=== PATIENT | female | born 1985 | race Caucasian/White ===

== ENCOUNTER 2017-12-01 17:46 | Emergency (ER) | payer BC ==
[2017-12-01 19:39] LABS: Absolute Lymphocytes (CBC) 3.6 K/uL (0.7-4.9); Absolute Monocytes 0.8 K/uL (0.1-1.3); Absolute Neutrophil 6.4 K/uL (1.8-8.0); Basophils % 0.7 % (0-1.3); Eosinophils % 1.2 % (0-4.4); Hematocrit 39.1 % (36.0-45.0); Lymphocytes % 32.7 % (15.3-44.8); MCH 31.8 pg (27.0-35.0); MCV 91.8 fL (80-100); MPV 9.1 fL (7.6-11.3); Monocytes % 7.4 % (3.3-12.3); RBC Red Blood Cell Count 4.26 M/uL (3.86-4.86)
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
[2017-12-01 19:58] LABS: BUN Blood Urea Nitrogen 4 mg/dL (7-18); Bicarbonate 25 mmol/L (21-32); Glucose Level 84 mg/dL (74-106); Potassium 3.4 mmol/L (3.5-5.1); Sodium Level 140 mmol/L (136-145)
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
[2017-12-01] MEDS ORDERED: POTASSIUM 25 MEQ EFFERV TAB ONE (21:38)
== END 2017-12-01 21:57 | disposition home or self-care (01) ==
LOC: ER 17:46
PROC: 3E0234Z Introduction of Serum, Toxoid and Vaccine into Muscle, Percutaneous Approach (ICD-10-PCS; principal; 2017-12-01)
DX: Z04.1 Encounter for examination and observation following transport accident (principal); Z34.92 Encounter for supervision of normal pregnancy, unspecified, second trimester; V57.0XXA Driver of pick-up truck or van injured in collision with fixed or stationary object in nontraffic accident, initial encounter; Y93.89 Activity, other specified; Y92.410 Unspecified street and highway as the place of occurrence of the external cause
CPT/HCPCS: 36415; 76815; 80048; 85025; 86850; 86900; 86901; 96372; 99284; J2790

== ENCOUNTER 2019-04-08 15:08 | Emergency (ER) | payer BC ==
--- OUTSIDE RECORDS SUMMARY | 2019-04-08 15:10 | XMS REPORT ---
:1985 Author Organization [employer] Care Team Providers Name Role Phone Sathya Meyer Provider Role Unavailable Allergies, Adverse Reactions, Alerts Substance Reaction Event Type Cephalexin Info Not Available Drug Allergy Problems Problem Type Condition Code Onset Dates Condition Status Problem Family history of heart disease Z82.49 Active Problem Bereavement Z63.4 Active Problem Hyperlipidemia E78.5 Active Assessment Cellulitis of left lower extremity L03.116 Active Assessment Skin ulcer, limited to breakdown of L98.491 Active skin Problem Hypercoagulable state D68.59 Active Problem Supervision of with other O09.299 Active poor reproductive or obstetric history, unspecified trimester Problem Body mass index (BMI) 36.0-36.9, Z68.36 Active adult Problem Skin ulcer, limited to breakdown of L98.491 Active skin Problem Gastroesophageal reflux disease K21.9 Active without esophagitis Problem Mild intermittent asthma with acute J45.21 Active exacerbation Problem Personal history of gestational Z86.32 Active diabetes Problem Environmental allergies Z91.09 Active Medications Medication Code Code Instructions Start End Status Dosage System Date Date Lovenox [facility] 99360498847 40 MG/0.4ML Active 0.4 ml Subcutaneous Once a day Tylenol ND 13034729312 325 MG Orally Active 1 tablet as every 4 hrs needed Aspirin 81 ND 91937791071 81 MG Orally Active 1 tablet Once a day Prenatabs OBN NDC 0 Active not defined ProAir HFA [facility] 24179742530 108 (90 Base) Feb 14, Active 2 puffs as MCG/ACT 2018 needed Inhalation every 6 hrs Lomotil ND 56958976668 2.5-0.025 MG Feb 28Mar 10, Active 1 tablet as Orally Four 2018 2018 needed times a day Ibuprofen ND 50737875653 800 MG Orally Active 1 tablet with Twice times a food or milk day as needed Santyl [facility] 42486740133 250 UNIT/GM Mar 04Mar 09, Active 1 application Externally Once 2019 2019 a day Synthroid ND 62331708930 50 MCG Orally Active 1 tablet on an Once a day empty stomach in the morning Bactrim DS [facility] 78041460597 800-160 MG Mar 04Mar 14, Active 1 tablet Orally Twice a 20182018 Results No Known Results Summary Purpose [employer] Submission
--- OUTSIDE RECORDS SUMMARY | 2019-04-08 15:10 | XMS REPORT ---
:1985 Author Organization [employer] Care Team Providers Name Role Phone Pema Beavers Provider Role Unavailable Allergies, Adverse Reactions, Alerts Substance Reaction Event Type Cephalexin Info Not Available Drug Allergy Bactrim DS Info Not Available Drug Allergy Problems Problem Type Condition Code Onset Dates Condition Status Problem Family history of heart disease Z82.49 Active Problem Bereavement Z63.4 Active Problem Hyperlipidemia E78.5 Active Assessment Allergic reaction to drug, initial T78.40XA Active encounter Assessment Rash R21 Active Problem Hypercoagulable state D68.59 Active Problem Supervision of with O09.299 Active other poor reproductive or obstetric history, unspecified trimester Problem Body mass index (BMI) 36.0-36.9, Z68.36 Active adult Problem Skin ulcer, limited to breakdown L98.491 Active of skin Problem Gastroesophageal reflux disease K21.9 Active without esophagitis Problem Mild intermittent asthma with J45.21 Active acute exacerbation Problem Personal history of gestational Z86.32 Active diabetes Problem Environmental allergies Z91.09 Active Medications Medication Code Code Instructions Start End Status Dosage System Date Date Ibuprofen ND 18661650673 800 MG Orally Active 1 tablet Twice times a with food day or milk as needed Tylenol ND 82281683560 325 MG Orally Active 1 tablet every 4 hrs as needed Lovenox ND 59406243377 40 MG/0.4ML Active 0.4 ml Subcutaneous Once a day Synthroid ND 88279398114 50 MCG Orally Active 1 tablet Once a day on an empty stomach in the morning Bactrim DS ND 71489479340 800-160 MG Mar 04, Mar 14, Active 1 tablet Orally Twice a 2018 2018 day ProAir HFA ND 64000517023 108 (90 Base) Feb 10, Active 2 puffs as MCG/ACT 2019 needed Inhalation every 6 hrs Aspirin 81 ND 39870515537 81 MG Orally Active 1 tablet Once a day Prenatabs OBN NDC 0 Active not defined Results No Known Results Summary Purpose [employer]ClinicalWorks Submission
[2019-04-08 15:41] LABS: Absolute Lymphocytes (CBC) 0.7 K/uL (0.7-4.9); Basophils % 0.3 % (0-1.3); Hematocrit 39.6 % (36.0-45.0); Lymphocytes % 6.5 % (15.3-44.8); MPV 8.8 fL (7.6-11.3); RBC Red Blood Cell Count 4.73 M/uL (3.86-4.86)
[2019-04-08] MEDS ORDERED: ONDANSETRON 4 MG/2 ML VIAL ONE (15:43)
[2019-04-08] MEDS ORDERED: NA CHLORIDE 0.9% 1,000 ML ONE ×2 (15:43→17:45)
[2019-04-08 15:57] LABS: Bilirubin Direct 0.2 mg/dL (0-0.2); Bilirubin Total 0.9 mg/dL (0.2-1.0); Potassium 3.9 mmol/L (3.5-5.1); Protein, Total 7.6 g/dL (6.4-8.2)
[2019-04-08 16:36] LABS: Blood Morphology Comment NOT SEEN (NOT SEEN); Platelet Estimate ADEQ; Urine White Blood Cell Casts OK
[2019-04-08 17:08] LABS: Urine Blood NEGATIVE (NEG); Urine Glucose NEGATIVE (NEG); Urine Protein 1+ (NEG); Urine Specific Gravity 1.015 (1.005-1.030); Urine pH 8.5 (5.0-7.0)
--- NOTE | 2019-04-08 17:08 | RAD REPORT ---
EXAM DESCRIPTION: CTAbdomen Pelvis W Contrast - 04/08/2019 4:57 pm CLINICAL HISTORY: Abdominal pain. left sided abd pain, vomiting, diarrhea;Abd pain COMPARISON: <Comparisons> TECHNIQUE: Biphasic CT imaging of the abdomen and pelvis was performed with 100 ml non-ionic IV cont rast. All CT scans are performed using dose optimization technique as appropriate and may include automated exposure control or mA/KV adjustment according to patient size. FINDINGS: The lung bases are clear. The liver, spleen, pancreas, adrenal glands and kidneys are within normal limits. No bowel obstruction, free air, free fluid or abscess. The appendix is normal. No evidence of signi ficant lymphadenopathy. Scoliosis hardware is present in the lower thoracic spine. IMPRESSION: No acute intra-abdominal or pelvic finding.
--- NOTE | 2019-04-08 18:18 | EDPHYS ---
Physician Documentation [facility] Name: Mary Gaytan Age: 33 yrs Sex: Female : 1985 Arrival Date: 04/08/2019 Time: 15:12 Bed 25 Private MD: ED Physician Luciano Frgaa HPI: 04/08 16:40 This 33 yrs old Female presents to ER via Wheelchair with complaints of rn Vomiting/Diarrhea. 16:40 The patient presents to the emergency department with nausea, vomiting, diarrhea, rn abdominal pain, of the left upper quadrant. Onset: The symptoms/episode began/occurred 2 day(s) ago. Possible causes: unknown. The symptoms are aggravated by nothing. The symptoms are alleviated by nothing. Associated signs and symptoms: Pertinent positives: abdominal pain, diarrhea, nausea, vomiting, Pertinent negatives: fever, GI bleeding. The patient has not experienced similar symptoms in the past. The patient has not recently seen a physician. Reports left sided abd pain, nausea/vomiting/diarrhea, began 1-2 days ago, no fever or blood in stool/emesis. . 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 - Social history:: Smoking status: Patient/guardian denies using tobacco. - Ebola Screening: : No symptoms or risks identified at this time. - Family history:: not pertinent. - Hospitalizations: : No recent hospitalization is reported. ROS: 16:40 Constitutional: Negative for fever, chills, and weight loss, Eyes: Negative for injury, rn pain, redness, and discharge, Cardiovascular: Negative for chest pain, palpitations, and edema, Respiratory: Negative for shortness of breath, cough, wheezing, and pleuritic chest pain, Abdomen/GI: + abd pain, nausea/vomiting/diarrhea MS/Extremity: Negative for injury and deformity, Skin: Negative for injury, rash, and discoloration, Neuro: Negative for headache, numbness, tingling, and seizure. Exam: 16:40 Constitutional: This is a well developed, well nourished patient who is awake, alert, rn appears fatigued Head/Face: Normocephalic, atraumatic. ENT: dry MM Neck: Trachea midline, no thyromegaly or masses palpated, and no cervical lymphadenopathy. Supple, full range of motion without nuchal rigidity, or vertebral point tenderness. No Meningismus. Cardiovascular: Regular rate and rhythm. No pulse deficits. Respiratory: No increased work of breathing, no retractions or nasal flaring. Abdomen/GI: soft, mild left sided tenderness, no rebound MS/ Extremity: Pulses equal, no cyanosis. Neurovascular intact. Full, normal range of motion. Equal circumference. Neuro: Awake and alert, GCS 15, oriented to person, place, time, and situation. Cranial nerves II-XII grossly intact. Motor strength 5/5 in all extremities. Sensory grossly intact. Vital Signs: 15:17 BP 109 / 67; Pulse 92; Resp 18 S; Temp 98.2(TE); Pulse Ox 100% on R/A; Weight 102.06 kg aa5 (R); Height 5 ft. 7 in. (170.18 cm) (R); Pain 3/10; 16:54 Pulse 82; Resp 18; Pulse Ox 100% on R/A; mg2 17:50 BP 112 / 77; Pulse 90; Resp 18; Pulse Ox 100% on R/A; mg2 18:47 BP 115 / 78; Pulse 92; Resp 18; Temp 98; Pulse Ox 100% on R/A; Pain 0/10; mg2 15:17 Body Mass Index 35.24 (102.06 kg, 170.18 cm) aa5 MDM: 15:30 Patient medically screened. rn 17:41 Differential diagnosis: Nonspecific abd pain, appendicitis, diverticulitis, viral rn gastroenteritis, gastroenteritis. Data reviewed: vital signs, nurses notes, lab test result(s), radiologic studies, CT scan, and as a result, I will discharge patient. Counseling: I had a detailed discussion with the patient and/or guardian regarding: the historical points, exam findings, and any diagnostic results supporting the discharge/admit diagnosis, lab results, radiology results, the need for outpatient follow up, to return to the emergency department if symptoms worsen or persist or if there are any questions or concerns that arise at home. Response to treatment: the patient's symptoms have markedly improved after treatment, and as a result, I will discharge patient. 17:50 ED course: Pt improved, will give another bolus of NS, stool culture obtained and sent. rn Non-bloody stool. Patient reports 2 other family members with GI symptoms as well, most likely enteritis, CT abdomen without acute findings, will dc home assuming viral enteritis with dehydration, prn zofran, and return precautions. Will send stool culture given recent shigella cases in our area. All of this explained to patient and feels better and good with plan. . 04/08 15:26 Order name: Basic Metabolic Panel; Complete Time: 16:36 mg2 04/08 15:26 Order name: CBC with Diff; Complete Time: 16:39 mg2 04/08 15:26 Order name: Creatinine for Radiology; Complete Time: 16:36 mg2 04/08 15:26 Order name: Hepatic Function; Complete Time: 16:36 mg2 04/08 15:26 Order name: Lipase; Complete Time: 16:36 mg2 04/08 15:46 Order name: CBC Smear Scan; Complete Time: 16:39 EDMS 04/08 15:36 Order name: CT Abd/Pelvis - IV Contrast Only; Complete Time: 17:29 04/08 16:26 Order name: Urine Dipstick--Ancillary (enter results); Complete Time: 17:17 bd 04/08 16:26 Order name: Urine --Ancillary (enter results); Complete Time: 17:17 bd 04/08 17:39 Order name: Rotavirus Antigen 04/08 17:39 Order name: Stool Culture 04/08 15:26 Order name: IV Saline Lock; Complete Time: 15:34 mg2 04/08 15:26 Order name: Labs collected and sent; Complete Time: 15:34 mg2 Administered Medications: 15:45 Drug: Zofran 4 mg Route: IVP; Site: left antecubital; mg2 17:50 Follow up: Response: No adverse reaction; Marked relief of symptoms mg2 15:46 Drug: NS 0.9% 1000 ml Route: IV; Rate: 1000 ml; Site: left antecubital; mg2 17:50 Follow up: Response: No adverse reaction; IV Status: Completed infusion; IV Intake: mg2 1000ml 17:35 Drug: NS 0.9% 1000 ml Route: IV; Rate: 1000 ml; Site: right forearm; mg2 18:47 Follow up: Response: No adverse reaction; IV Status: Completed infusion; IV Intake: mg2 1000ml Disposition: 04/08/19 17:52 Discharged to Home. Impression: Diarrhea, unspecified, Infectious gastroenteritis and colitis, unspecified, Dehydration. - Condition is Stable. - Discharge Instructions: Dehydration, Adult, Diarrhea, Adult. - Prescriptions for Zofran ODT 4 mg Oral tablet,disintegrating - place 1 tablet by TRANSLINGUAL route every 8 hours As needed; 20 tablet. - Medication Reconciliation Form, Thank You Letter, Antibiotic Education, Prescription Opioid Use, Work release form form. - Follow up: Private Physician; When: As needed; Reason: Recheck today's complaints, Re-evaluation by your physician. - Problem is new. - Symptoms have improved. Signatures: Dispatcher [employer] EDWA Luciano Fraga MD MD rn Calderon, Audri RN RN aa5 Elvis Arias RN RN mg2 Corrections: (The following items were deleted from the chart) 18:27 18:13 Rotavirus Antigen ordered. [facility] 18:48 17:52 04/08/2019 17:52 Discharged to Home. Impression: Diarrhea, unspecified; mg2 Infectious gastroenteritis and colitis, unspecified; Dehydration. Condition is Stable. Forms are Medication Reconciliation Form, Thank You Letter, Antibiotic Education, Prescription Opioid Use. Follow up: Private Physician; When: As needed; Reason: Recheck today's complaints, Re-evaluation by your physician. Problem is new. Symptoms have improved. rn
--- NOTE | 2019-04-08 18:18 | ER ---
Nurse's Notes [facility] Name: Mary Gaytan Age: 33 yrs Sex: Female : 1985 Arrival Date: 04/08/2019 Time: 15:12 Bed 25 Private MD: Diagnosis: Diarrhea, unspecified;Infectious gastroenteritis and colitis, unspecified;Dehydration Presentation: 04/08 15:16 Presenting complaint: Patient states: LUQ pain, headache, nausea/vomiting/diarrhea that aa5 began 2 days ago. Transition of care: patient was not received from another setting of care. Onset of symptoms was 2018. Risk Assessment: Do you want to hurt yourself or someone else? Patient reports no desire to harm self or others. Initial Sepsis Screen: Does the patient meet any 2 criteria? No. Patient's initial sepsis screen is negative. Does the patient have a suspected source of infection? No. Patient's initial sepsis screen is negative. Care prior to arrival: None. 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 - Social history:: Smoking status: Patient/guardian denies using tobacco. - Ebola Screening: : No symptoms or risks identified at this time. - Family history:: not pertinent. - Hospitalizations: : No recent hospitalization is reported. Screenin:33 Abuse screen: Denies threats or abuse. Denies injuries from another. Nutritional mg2 screening: No deficits noted. Tuberculosis screening: No symptoms or risk factors identified. Fall Risk IV access (20 points). Assessment: 15:32 General: Appears in no apparent distress. comfortable, Behavior is calm, cooperative. mg2 Pain: Complains of pain in abdomen. Neuro: Level of Consciousness is awake, alert, obeys commands, Oriented to person, place, time, situation. Cardiovascular: Capillary refill < 3 seconds Patient's skin is warm and dry. Respiratory: Airway is patent Respiratory effort is even, unlabored, Respiratory pattern is regular, symmetrical. GI: Abdomen is non-distended, Reports diarrhea, vomiting. : No signs and/or symptoms were reported regarding the genitourinary system. EENT: No signs and/or symptoms were reported regarding the EENT system. Derm: Skin is intact, is healthy with good turgor, Skin is pink, warm \T\ dry. normal. Musculoskeletal: Circulation, motion, and sensation intact. Capillary refill < 3 seconds. 17:52 Reassessment: Patient appears in no apparent distress at this time. Patient and/or mg2 family updated on plan of care and expected duration. Pain level reassessed. Patient is alert, oriented x 3, equal unlabored respirations, skin warm/dry/pink. 17:53 Reassessment: patient for dc after completing the iv fluid. mg2 Vital Signs: 15:17 BP 109 / 67; Pulse 92; Resp 18 S; Temp 98.2(TE); Pulse Ox 100% on R/A; Weight 102.06 kg aa5 (R); Height 5 ft. 7 in. (170.18 cm) (R); Pain 3/10; 16:54 Pulse 82; Resp 18; Pulse Ox 100% on R/A; mg2 17:50 BP 112 / 77; Pulse 90; Resp 18; Pulse Ox 100% on R/A; mg2 18:47 BP 115 / 78; Pulse 92; Resp 18; Temp 98; Pulse Ox 100% on R/A; Pain 0/10; mg2 15:17 Body Mass Index 35.24 (102.06 kg, 170.18 cm) aa5 ED Course: 15:12 Patient arrived in ED. mr 15:16 Triage completed. aa5 15:16 Arm band placed on. aa5 15:26 Elvis Arias, RN is Primary Nurse. mg2 15:30 Luciano Fraga MD is Attending Physician. rn 15:33 No provider procedures requiring assistance completed. Inserted saline lock: 20 gauge mg2 in left antecubital area, using aseptic technique. Blood collected. by Sherman preforms laminator. 15:34 Patient has correct armband on for positive identification. mg2 15:34 Bed in low position. Call light in reach. Side rails up X 1. Side rails up X2. Warm jp3 blanket given. Pillow given. Verbal reassurance given. Pulse ox on. NIBP on. 15:34 Initial lab(s) drawn, by me, sent to lab. Patient maintains SpO2 saturation greater jp3 than 95% on room air. 15:38 Radiology exam delayed due to lab results not completed at this time. test vm2 not completed at this time. 16:06 Radiology exam delayed due to test not completed at this time. vm2 16:57 CT Abd/Pelvis - IV Contrast Only In Process Unspecified. EDMS 17:51 stool sent to the lab. mg2 17:53 Rotavirus Antigen Sent. jp3 17:53 Stool Culture Sent. jp3 18:48 IV discontinued, intact, bleeding controlled, No redness/swelling at site. Pressure mg2 dressing applied. Administered Medications: 15:45 Drug: Zofran 4 mg Route: IVP; Site: left antecubital; mg2 17:50 Follow up: Response: No adverse reaction; Marked relief of symptoms mg2 15:46 Drug: NS 0.9% 1000 ml Route: IV; Rate: 1000 ml; Site: left antecubital; mg2 17:50 Follow up: Response: No adverse reaction; IV Status: Completed infusion; IV Intake: mg2 1000ml 17:35 Drug: NS 0.9% 1000 ml Route: IV; Rate: 1000 ml; Site: right forearm; mg2 18:47 Follow up: Response: No adverse reaction; IV Status: Completed infusion; IV Intake: mg2 1000ml Intake: 17:50 IV: 1000ml; Total: 1000ml. mg2 18:47 IV: 1000ml; Total: 2000ml. mg2 Outcome: 17:52 Discharge ordered by . rn 18:48 Discharged to home ambulatory. mg2 18:48 Condition: stable 18:48 Discharge instructions given to patient, Instructed on discharge instructions, follow up and referral plans. medication usage, Demonstrated understanding of instructions, follow-up care, medications, Prescriptions given X 1. 18:48 Patient left the ED. mg2 Signatures: Dispatcher [employer] BERTINIL ConnorElizabeth Roman, MD MD rn Calderon, Audri RN RN [id number] Tia Soto 2 Elvis Arias RN RN mg2 Harpal Palm jp3
[2019-04-08 23:39] VITALS: O2SAT 100
[2019-04-08 23:44] VITALS: BP 115/78; TEMP 98
== END 2019-04-08 18:48 | disposition home or self-care (01) ==
LOC: ER 15:08
DX: A09 Infectious gastroenteritis and colitis, unspecified (principal); E86.0 Dehydration; E03.9 Hypothyroidism, unspecified; Z88.1 Allergy status to other antibiotic agents; Z88.3 Allergy status to other anti-infective agents
CPT/HCPCS: 96361; 87045; 85025; 80048; 36415; 81025; 80076; 87046; 81003; 83690; 74177; 96374; 99284; Q9967; J7030 ×2; J2405

== ENCOUNTER 2020-09-14 18:19 | Emergency (ER) | payer BC ==
--- OUTSIDE RECORDS SUMMARY | 2020-09-14 18:23 | XMS REPORT | Continuity of Care Document ---
:1985 Author Organization [facility] t Address [address] [place] [address] Care Team Providers Name Role Phone Kierra Briggs MD. Primary Care Physician Fermin Perdomo MD Attending Clinician Irina Briggs MD Attending Clinician Valdo Parekh Attending Clinician Emily CANELA Attending Clinician Maris HOPKINS Attending Clinician Unavailable Leslie CANELA, W. Attending Clinician Cortes Marcano Attending Clinician Orlando Lopez Attending Clinician Josh Bullard Attending Clinician Tommy Vargas Attending Clinician BON Admitting Clinician Unavailable Payers Payer Name Policy Type Policy Effective Date Expiration Date [facility] Number BCBSBCBS CHOICE [id number] 2016 [place] PPO/FEDERAL 00:00:00 Rastafarian EMPL [id number] 2016-Karoline tPPO Problems Condition Condition Condition Status Onset Resolution Last Treating Co mments Source Name Details Category Date Date Treatment Clinician Date Disease Active Robert ston at greater at greater 1-31 Me thodi than 3 than 3 00:00: st months months 00 gestation gestation Disease Active Robert ston 1-13 Methodi 00:00: st 00 Family Family Problem Active [facility] history of history of Herlinda kes - heart heart Memoria disease disease l [facility] Hypercoagu Hypercoagu Problem Active [facility] lable lable [facility] state state [facility] l [facility] Hyperlipid Hyperlipid Problem Active [facility] emia emia [facility] - [facility] Bereavemen Bereavemen Problem Active [facility] t t [facility] Body mass Body mass Problem Active [facility] index index [facility] - (BMI) (BMI) Memoria 36.0-36.9, 36.0-36.9, l adult adult [facility] Personal Personal Problem [facility] of history of Herlinda kes - gestationa gestationa Me moria l diabetes l diabetes l [facility]ics Supervisio Supervisio Problem Active [facility] n of n of [facility] - David palma with other with other l poor poor Outpati reproducti reproducti en t ve or ve or Clinics obstetric obstetric history, history, unspecifie unspecifie d d trimester trimester Mild Mild Problem Active [facility] intermitte intermitte Herlinda kes - nt asthma nt asthma David palma with acute with acute l exacerbati exacerbati Ou tpati on on ent Clinics Environmen Environmen Problem Active C [facility] reg reg [facility] - allergies allergies David palma l [facility] Gastroesop Gastroesop Problem Active C [facility] hageal hageal [facility] - reflux reflux Memoria disease disease l without without Outpati esophagiti esophagiti en t s s Clinics Skin Skin Problem Active [facility] ulcer, ulcer, [facility] - limited to limited to Me moria breakdown breakdown l of skin of skin [facility] Allergic Allergic Diagnosis Active [facility] reaction reaction [facility] - to drug, to drug, Memori a initial initial l encounter encounter Outp ati ent Clinics Rash Rash Diagnosis Active [facility] Allergies, Adverse Reactions, Alerts Allergy Allergy Status Severity Reaction(s) Onset Inactive Treating Comm ents Source Name Type Date Date Clinician Sulfamet Propensi Active Rash 2019-05 [place] hoxazole ty to 0-20 [facility] -Trimeth adverse 00:00: st oprim reaction 00 s to drug Cephalos Propensi Active Hives [place] porins ty to 9-23 Methodi adverse 00:00: st reaction 00 s to drug Loracarb Propensi Active Hives [place] ef ty to 12-22 Methodi adverse 00:00: st reaction 00 s to drug Cephalex Adverse Active Info Not [facility] in Reaction Available [facility] Bactrim Adverse Active Info Not [facility] DS Reaction Available [facility] Family History Family Member Diagnosis Comments Start Date Stop Date Source Natural father Heart attack [place] Rastafarian Natural father Heart disease [place] Rastafarian Natural father Hypertension [place] Rastafarian Natural father Ulcerative colitis Navdeep solis Rastafarian Natural mother Dementia [facility] thodist Natural mother Thyroid disease [place] Rastafarian Paternal aunt Heart disease [place] Rastafarian Natural sister Hypertension [place] Rastafarian Social History Social Habit Start Date Stop Date Quantity Comments Source Tobacco use and 2020-06-08 2020-06-08 Never used [facility] ethodist exposure 00:00:00 00:00:00 Alcohol intake 2020-06-08 2020-06-08 Lifetime [facility] thodist 00:00:00 00:00:00 non-drinker (finding) Alcohol Comment 2018-01-28 2018-01-28 Occsional but not Ho irma Rastafarian 00:00:00 00:00:00 in Sex Ass[birth year] [facility] ethodist 00:00:00 00:00:00 Smoking Status Start Date Stop Date Source Never smoker [place] [facility] t Medications Ordered Filled Start Stop Current Ordering Indication Dosage Frequency Signature Comments Components Source Medication Medication Date Date Medication? Clinician (SIG) Name Name enoxaparin 2020- No 40mg QD Inject 40 [place] (Lovenox) 06-10-03 mg under Metho di 40 mg/0.4 13:42: 00:[address] mL syringe 31 :00 daily. labetaloL 2020- No 100mg Q.5D Take 100 Ho irma (NORMODYNE) 06-10-03 mg by Method i 100 MG 13:42: 00:[address] tablet 31 :00 (two) times a day. aspirin 2020- No 81mg QD Take 81 mg Robert verena (ECOTRIN) 06-10-03 by mouth Metho di 81 MG 13:42: 00:[address] enteric 31 :00 coated tablet Yes 1{tbl} QD Take 1 [place] vit,calc76- 2-03 tablet by Met santos iron-folic 13:42: mouth st 29 mg iron- 29 daily. 1 mg tablet per tablet cholecalcif Yes 1000U QD Take 1,000 [place] ector, 2-03 Units by Methodi vitamin D3, 13:42: mouth st (VITAMIN 29 daily. D3) 1,000 unit tablet levothyroxi Yes 50ug QD Take 50 Robert ston ne 2-03 mcg by Methodi (SYNTHROID, 13:42: mouth st LEVOXYL) 50 29 every mcg tablet morning. ibuprofen No 600mg Q6H Take 1 [place] (ADVIL) 600 2-02 03-04 tablet Metho di MG tablet 00:00: 23:59 ([address] 00 :00 total) by mouth every 6 (six) hours as needed for moderate pain for up to 30 days. Bactrim DS Bactrim DS 2018-05 2019 No Pema [address] [address] 0-28 11-07 [place] [facility] - 00:00: 00:00 [facility]oria 00 :00 [facility] ProAir HFA ProAir HFA 2018-05 Yes Pema [address] [facility] 0-10 [place] needed [facility] - 00:00: Memoria 00 [facility] sertraline Yes [place] (ZOLOFT) 3 Methodi 100 MG 00:00: st tablet 00 levomefolat Yes [place] calcium 9 Methodi (L-METHYLFO 00:00: st LATE ORAL) 00 Lovenox Lovenox Yes [facility]ema 0.4 ml [facility] [place] [facility] Clinics Synthroid Synthroid Yes Pema [address] [facility] [address] [place] on an [facility] - empty Memoria stomach in l the Outpati morning ent Clinics Aspirin 81 Aspirin 81 Yes Pema [address] [facility] [place] [facility] Prenatabs Prenatabs Yes Pema not [facility] OBN OBN [place] defined [facility] l [facility] ent Clinics Ibuprofen Ibuprofen Yes Pema [address] [place] with food [facility] - or milk as Memoria needed l [facility] ent Clinics Tylenol Tylenol Yes Pema [address] [place] as needed [facility] - Memoria l [facility] ent Clinics Immunizations Ordered Immunization Filled Immunization Date Status Commen ts Source Name Name PFIZER COVID-19 MRNA 2020-08-17 Completed [place] VACCINATION 00:00:00 Rastafarian PFIZER COVID-19 MRNA 2020-07-27 Completed [facility] ton VACCINATION 00:00:00 Rastafarian Rho (D) Immune 2020-06-09 Completed [place] Globulin 00:00:00 Rastafarian MMR 2020-06-08 Completed [place] 00:00:00 Rastafarian Vital Signs Vital Name Observation Time Observation Value Comments Source Systolic blood 2020-06-10 07:44:52 140 mm[Hg] Gael Clemons pressure Diastolic blood 2020-06-10 07:44:52 83 mm[Hg] Samuel Clemons pressure Heart rate 2020-06-10 07:44:52 71 /min Edgardo Clemons Body temperature 2020-06-10 07:44:52 36.78 Misty Carolyn Clemons Respiratory rate 2020-06-10 07:44:52 18 /min Carolyn Clemons Oxygen saturation in 2020-06-08 13:15:00 97 /min Edgardo Clemons Arterial blood by Pulse oximetry Body height 2020-06-07 20:51:00 170.2 cm Edgardo Clemons Body weight 2020-06-07 20:51:00 109.77 kg Edgardo Clemons BMI 2020-06-07 20:51:00 37.90 kg/m2 Edgardo Clemons Procedures Procedure Date / Time Performing Clinician Source Performed HEMOGLOBIN 2020-06-09 04:43:00 Layla Briggs HEMATOCRIT 2020-06-09 04:43:00 Layla Briggs Meth odchristiano SCREEN 2020-06-09 04:33:00 Layla Briggs RH IMM GLOBULIN 2020-06-09 04:33:00 Layla Briggs ANESTHESIA EPIDURAL BLOCK 2020-06-08 06:33:22 Robert Diaz HC COMPLETE BLD COUNT 2020-06-07 20:45:00 Layla Briggs W/AUTO DIFF HEPATITIS B SURFACE 2020-06-07 20:45:00 Layla Briggs ANTIGEN SYPHILIS TOTAL ANTIBODY 2020-06-07 20:45:00 Layla Briggs TYPE AND SCREEN, 2020-06-07 20:45:00 Layla Briggs Met hodist OBSTETRICAL PATIENT GLUCOSE LEVEL 2020-06-07 20:45:00 Layla Briggs odist COVID-19 QUALITATIVE PCR 2020-06-05 11:04:00 Layla Briggs HC COMPLETE BLD COUNT 2020-04-25 21:00:00 Krysten Buchanan W/AUTO DIFF [facility] PROTHROMBIN TIME WITH INR 2020-04-25 21:00:00 Krysten Buchanan [facility] PARTIAL THROMBOPLASTIN 2020-04-25 21:00:00 Krysten Buchanan on Rastafarian TIME (PTT) [facility] FIBRINOGEN 2020-04-25 21:00:00 Krysten Buchanan [facility] US LIMITED 2020-04-25 20:40:13 Krysten Buchanan [facility] URINE CULTURE 2020-04-25 19:42:00 Krysten Buchanan [facility] URINALYSIS SCREEN AND 2020-04-25 19:25:00 Krysten Buchanan MICROSCOPY, WITH REFLEX TO [facility] CULTURE Plan of Care Planned Activity Planned Date Details Comments Source Future Scheduled 2020-12-06 INFLUENZA VACCINE Gael Griffinist Test 00:00:00 [code = INFLUENZA VACCINE] Future Scheduled 2018-12-14 Screening for [place] [facility] Test 00:00:00 malignant neoplasm of cervix (procedure) [code = 455915154] Future Scheduled 2002 Hepatitis C [place] Met hodist Test 00:00:00 screening (procedure) [code = 458940631] Encounters Start End Encounter Admission Attending Care Care Encounter Source Date/Time Date/Time Type Type Clinicians Facility Department ID 2020-08-17 2020-08-17 Outpatient BETO [facility] [id number] [place] 00:00:00 00:00:00 BREE [address] 2020-07-27 2020-07-27 Outpatient [facility] [id number] [place] 00:00:00 00:00:[address] 2020-06-07 2020-06-10 Inpatient BERTLEIA, [facility] [id number] [place] 00:00:00 00:00:00 LAYLA [address] 2020-06-05 2020-06-05 Outpatient BERTLES, [facility] [id number] [place] 00:00:00 00:00:00 LAYLA [address] 2020-04-25 2020-04-26 Emergency BERTLES, [facility] [id number] [place] 00:00:00 00:00:00 LAYLA [address] 2020-02-25 2020-02-25 Outpatient MAFFET, [facility] [id number] [place] 00:00:00 00:00:00 AG [address] 2020-02-25 2020-02-25 Outpatient MAFFET, [facility] [id number] [place] 00:00:00 00:00:[address] AG [address] 2019-07-16 2019-07-16 [id number] 16:46:07 20:16:00 Dae[place] 2019-07-16 2019-07-16 Outpatient Yassine Marcano [facility] [id number] 16:46:07 20:16:00 Daeun 2019-07-16 2019-07-16 Emergency E [facility] [id number] 16:46:00 16:46:00 2019-03-12 2019-03-12 [facility] [id number] 16:40:00 16:40:00 t [facility] Medicine Outpati ent Clinics 2019-03-04 2019-03-04 [facility] [id number] 15:45:00 15:45:00 t [facility] Medicine Outpati ent Clinics 2019-02-28 2019-02-28 [facility] [id number] 08:15:00 08:15:00 t [facility] Medicine Outpati ent Clinics 2019-02-14 2019-02-14 [facility] [id number] 16:15:00 16:15:00 [facility] 2018-10-30 2018-10-30 [facility] [id number] 11:45:00 11:45:00 [facility] 2017-11-21 2017-11-21 Outpatient ONEIDA Lopez [id number] 08:10:00 09:44:00 Alexandra Perry 2017-11-21 2017-11-21 Outpatient ONEIDA Lopez [id number] [id number] 08:10:00 09:44:00 Alexandra Perry 2016-02-18 2016-02-18 Outpatient ONEIDA Bullard [id number] 20:02:00 23:37:00 Dequan Moreno 2016-02-18 2016-02-18 Outpatient ONEIDA Bullard9 [id number] 20:02:00 23:37:00 Dequan Marcelo Moreno 2015-09-14 2015-09-14 Outpatient Sam [facility] [id number] 08:08:00 23:59:00 Evan Sanders 2015-09-14 2015-09-14 Outpatient Sam [facility] [id number] 08:08:00 23:59:00 Evan Sanders 2013-04-29 2013-04-29 Outpatient 3 [id number] 09:05:19 09:05:18 2013-04-29 2013-04-29 Outpatient 3 3 [id number] 09:05:19 09:05:18 2012-12-15 2012-12-15 Outpatient 3 3 [id number] 11:19:39 11:19:18 2012-12-15 2012-12-15 Outpatient 3 [id number] 11:19:39 11:19:18 2012-12-06 2012-12-06 Outpatient 3 [id number] 05:03:08 05:03:07 2012-12-06 2012-12-06 Outpatient 3 [id number] 05:03:08 05:03:07 2012-12-03 2012-12-03 Outpatient 3 [id number] 16:03:10 16:03:10 2012-12-03 2012-12-03 Outpatient 3 3 [id number] 16:03:10 16:03:10 Results Test Description Test Time Test Comments Results Result Comments Source Rh imm globulin 2020-06-09 06:15:00 Test Item Value Reference Range Interpretation Comme nts Rh Imm Globulin (test code = 2631) RHIG [id number] Issued [facility] [id number] 06:33:22Robert Diaz MD 06/08/2020 6:33 AMEpidural Block Patient Location: OBReason for Block: labor e pidural Performed by: anesthesiologistAnesthesiologist: Robert Diaz MDAuthorized by: Robert Diaz MD Preprocedure: patient identified, IV checked, site and side verified, risks and benefitsdiscussed, procedure verified, surgical consent completed, patient position confirmed, monitors and e quipment checked, pre-op evaluation completed and coagulation status reviewed Patient Position: SittingPrep: Betadine Monitoring: Blood pressure monitoring, continuous pulse oximetry and heart rateApproach: MidlineInterspace: L3-4Injection Technique: RAVINDER salineNeedle Type: TuohyNeedle Gauge: 17Loss of resistance: 5 cmCatheter at Skin Depth: 11 cmTest Dose: Negative and lidocaine 1.5% withepinephrine 1-to-200,000Number of Attempts: 1Pump program started: pain pump Block Outcome: No apparent complications, patient comfortable and patient tolerated procedure wellPost- procedure: Patient returned to supine position with left lateral displacement and sterile dressing appliedPump programchanged: pain pumpHouston MethodistUrine [id number] 04:53:48 Test Item Value Reference Range Interpretation Comments Urine culture Mixed ed Specimen isolate (test <=10-3 col/cc InformationSp ecimen code = [id number]) Source: Urin eSpecimen Site: Clean cat kunal [facility] MethodistUS [id number] 20:57:08Hm Interface, Radiology Results Incoming - 04/25/2020 9:00 PM CSTFormatting of this note might be di fferent from the original.EXAMINATION: US LIMITEDCLINICAL HISTORY: 35 years Female Vaginal bleeding (), 33.1 weeks vag bleedingTECHNIQUE: Grayscale and color Doppler analysis of the pelvis was performed via transabdominal approach.COMPARISON: None.IMPRESSION:Limited evaluation dem onstrates a single intrauterine .Estimated gestational age is 36 weeks 0 days which corresponds to an MARLENY of May 23, 2020 cardiac activity is identified with a rate of 149 bpm.The placenta is fundal and there is no evidence of placenta previa.The fetus is in Cephalic position.Amniotic fluid volume is within normal limits given the gestational age. JUSTIN is 11.3, the largest pocket measures 4.0 cmCervical length is 3.2 cm.Estimated weight is 2744g. Estimated weight percentage is 43%Edgardo Clemons
--- NOTE | 2020-09-14 20:32 | RAD REPORT ---
EXAM DESCRIPTION: RAD - Shoulder Left 2 View - 09/14/2020 8:21 pm CLINICAL HISTORY: PAIN COMPARISON: No comparisons FINDINGS: No fracture or dislocation is seen.
--- NOTE | 2020-09-14 20:34 | RAD REPORT ---
EXAM DESCRIPTION: RAD - Elbow Left 2 View - 09/14/2020 8:22 pm CLINICAL HISTORY: PAIN COMPARISON: No comparisons FINDINGS: The examination is limited nonstandard anatomic positioning. Mild elevation the anterior a nd fat pad is suspected. This could indicate subtle radial head fracture that is not visible due to l imitations the presented images. Advise correlation with clinical point tenderness in the region.
--- NOTE | 2020-09-14 20:34 | RAD REPORT ---
EXAM DESCRIPTION: RAD - Wrist Left 3 View - 09/14/2020 8:24 pm CLINICAL HISTORY: PAIN Pain COMPARISON: No comparisons FINDINGS: No acute fracture or dislocation seen.
--- NOTE | 2020-09-14 21:02 | ER ---
Nurse's Notes [facility] Name: Mary Johnson Age: 35 yrs Sex: Female : 1985 Arrival Date: 09/14/2020 Time: 18:20 Bed 23 Private MD: Diagnosis: Radial Head Fracture Presentation: 09/14 18:25 Chief complaint: Patient states: "I tripped over a baby gait by accendent and landed on jd3 my left arm. shoulder down hurts pretty bad.". Coronavirus screen: At this time, the client does not indicate any symptoms associated with coronavirus-19. Ebola Screen: Patient negative for fever greater than or equal to 101.5 degrees Fahrenheit, and additional compatible Ebola Virus Disease symptoms. Initial Sepsis Screen: Does the patient meet any 2 criteria? No. Patient's initial sepsis screen is negative. Does the patient have a suspected source of infection? No. Patient's initial sepsis screen is negative. Risk Assessment: Do you want to hurt yourself or someone else? Patient reports no desire to harm self or others. Onset of symptoms was September 14, 2020. 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 - Social history:: Smoking status: Patient denies any tobacco usage or history of. Screenin:28 Abuse screen: Denies threats or abuse. Denies injuries from another. Nutritional iw screening: No deficits noted. Tuberculosis screening: No symptoms or risk factors identified. Fall Risk None identified. Assessment: 20:27 General: Appears in no apparent distress. Behavior is calm, cooperative. Pain: iw Complains of pain in left arm. Neuro: Level of Consciousness is awake, alert, obeys commands, Oriented to person, place, time, situation. Derm: Skin is intact, is healthy with good turgor. Musculoskeletal: Range of motion: limited in left elbow. Vital Signs: 18:30 BP 129 / 95; Pulse 88; Resp 17 S; Temp 97.5(TE); Pulse Ox 99% on R/A; Weight 106.59 kg jd3 (R); Height 5 ft. 7 in. (170.18 cm) (R); Pain 8/10; 18:30 Body Mass Index 36.81 (106.59 kg, 170.18 cm) jd3 ED Course: 18:20 Patient arrived in ED. as 18:26 Triage completed. jd3 18:30 Arm band placed on. jd3 20:20 Dante Luque PA is PHCP. m 20:20 Romario Kearns MD is Attending Physician. jmm 20:22 XRAY Shoulder LEFT 2 view In Process Unspecified. EDMS 20:22 XRAY Wrist LEFT 3 view In Process Unspecified. EDMS 20:22 Elbow Left 2 View In Process Unspecified. EDMS 20:27 Crys Li, RN is Primary Nurse. iw 21:01 Herberth Francisco MD is Referral Physician. [facility] Administered Medications: 21:30 Not Given (Patient Refused): Ibuprofen 800 mg PO once iw Outcome: 21:01 Discharge ordered by . m 21:58 Patient left the ED. iw Signatures: Dispatcher [employer] EDMS Dante Luque PA PA jmm Martinez, Amelia as Crys Li, RN RN iw Germain Kelley RN RN j
--- NOTE | 2020-09-14 21:02 | EDPHYS ---
Physician Documentation [facility] Name: Mary Johnson Age: 35 yrs Sex: Female : 1985 Arrival Date: 09/14/2020 Time: 18:20 Bed 23 Private MD: ED Physician Romario Kearns HPI: 09/14 20:41 This 35 yrs old Female presents to ER via Ambulatory with complaints of Elbow jmm Injury, Arm Injury. 20:41 The patient or guardian complains of injury, pain. Onset: The symptoms/episode jmm began/occurred acutely, just prior to arrival. Modifying factors: The symptoms are alleviated by nothing. the symptoms are aggravated by movement. Associated signs and symptoms: Pertinent negatives: fever. Patient states falling on her left side after attempting to step over a babygate. . 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 - Social history:: Smoking status: Patient denies any tobacco usage or history of. ROS: 20:41 Constitutional: Negative for fever, chills, and weight loss, Cardiovascular: Negative jmm for chest pain, palpitations, and edema, Respiratory: Negative for shortness of breath, cough, wheezing, and pleuritic chest pain. 20:41 MS/extremity: Positive for injury or acute deformity. 20:41 All other systems are negative. Exam: 20:41 Constitutional: This is a well developed, well nourished patient who is awake, alert, jmm and in no acute distress. Head/Face: atraumatic. Eyes: EOMI, no conjunctival erythema appreciated ENT: Moist Mucus Membranes Neck: Trachea midline, Supple Chest/axilla: Normal chest wall appearance and motion. Cardiovascular: Regular rate and rhythm. No edema appreciated Respiratory: Normal respirations, no respiratory distress appreciated Abdomen/GI: Non distended, soft Back: Normal ROM 20:41 Musculoskeletal/extremity: Painful rom noted to the left elbow, full radial pulse, compartments are soft, NVI. 20:41 Skin: abrasions noted to the lower extremities. 20:41 Neuro: Orientation: is normal, Mentation: is normal, Memory: is normal. 20:41 Psych: Behavior/mood is pleasant, cooperative. Vital Signs: 18:30 BP 129 / 95; Pulse 88; Resp 17 S; Temp 97.5(TE); Pulse Ox 99% on R/A; Weight 106.59 kg jd3 (R); Height 5 ft. 7 in. (170.18 cm) (R); Pain 8/10; 18:30 Body Mass Index 36.81 (106.59 kg, 170.18 cm) jd3 MDM: 20:26 Patient medically screened. [facility] 21:01 Data reviewed: vital signs, nurses notes. Counseling: I had a detailed discussion with bernardo the patient and/or guardian regarding: the historical points, exam findings, and any diagnostic results supporting the discharge/admit diagnosis, radiology results, the need for outpatient follow up, to return to the emergency department if symptoms worsen or persist or if there are any questions or concerns that arise at home. 09/14 18:32 Order name: XRAY Shoulder LEFT 2 view; Complete Time: 20:37 jd3 09/14 18:32 Order name: XRAY Wrist LEFT 3 view; Complete Time: 20:37 jd3 09/14 20:21 Order name: Elbow Left 2 View; Complete Time: 20:37 EDRI 09/14 20:38 Order name: Splint - Elbow - Posterior; Complete Time: 21:24 [facility] Administered Medications: 21:30 Not Given (Patient Refused): Ibuprofen 800 mg PO once iw Disposition: 09/15 06:49 Co-signature as Attending Physician, Romario Kearns MD I agree with the assessment and [facility] plan of care. Disposition: 09/14/20 21:01 Discharged to Home. Impression: Radial Head Fracture. - Condition is Stable. - Discharge Instructions: Radial Head Fracture. - Prescriptions for Ibuprofen 800 mg Oral Tablet - take 1 tablet by ORAL route every 8 hours As needed take with food; 30 tablet. - Medication Reconciliation Form, Thank You Letter, Antibiotic Education, Prescription Opioid Use form. - Follow up: Herberth Francisco MD; When: 2 - 3 days; Reason: Recheck today's complaints, Continuance of care, Re-evaluation by your physician. Signatures: Dispatcher [employer] EDRI Romario Kearns MD MD cha Mickail, Joel, PA PA jmm Williams, Irene, RN RN Germain Desai RN RN jd3 Corrections: (The following items were deleted from the chart) 09/14 20:21 18:33 Elbow Left 3 View+[email or web address].[email or web address] ordered. [facility] 21:58 21:01 09/14/2020 21:01 Discharged to Home. Impression: Radial Head Fracture. Condition iw is Stable. Forms are Medication Reconciliation Form, Thank You Letter, Antibiotic Education, Prescription Opioid Use. Follow up: Dr. Herberth Francisco; When: 2 - 3 days; Reason: Recheck today's complaints, Continuance of care, Re-evaluation by your physician. bernardo
[2020-09-14] MEDS ORDERED: IBUPROFEN 400 MG TAB ONE (21:46)
[2020-09-14 23:11] VITALS: BP 129/95; TEMP 97.5; O2SAT 99
== END 2020-09-14 21:58 | disposition home or self-care (01) ==
LOC: ER 18:19
PROC: 2W39X1Z Immobilization of Left Upper Extremity using Splint (ICD-10-PCS; principal; 2020-09-14)
DX: S52.122A Displaced fracture of head of left radius, initial encounter for closed fracture (principal); W18.09XA Striking against other object with subsequent fall, initial encounter; Y93.89 Activity, other specified; Z88.1 Allergy status to other antibiotic agents; Z88.3 Allergy status to other anti-infective agents; Z88.5 Allergy status to narcotic agent
CPT/HCPCS: 99282

== ENCOUNTER 2022-04-29 07:57 | Day surgery (SDC) | payer BC ==
[2022-04-29] MEDS ORDERED: Ringers Lactate 1,000 ML IV ONE (08:14)
[2022-04-29] MEDS ORDERED: propofoL 200 MG/20 ML VIAL IV ONE ×2 (08:24→08:43)
[2022-04-29] MEDS ORDERED: FENTANYL CITR 100 MCG/2 ML ONE (08:24)
[2022-04-29] MEDS ORDERED: MIDAZOLAM HCL 2 MG/2 ML INJ ONE ×2 (08:25→08:43)
[2022-04-29] MEDS ORDERED: ONDANSETRON 4 MG/2 ML VIAL ONE ×3 (08:26→09:17)
[2022-04-29] MEDS ORDERED: LIDOCAINE 2% MPF 5 ML VIAL ONE ×2 (08:26→08:47)
[2022-04-29] MEDS ORDERED: KETOROLAC 30 MG/ML INJ ONE (08:43)
--- NOTE | 2022-04-29 09:44 | P.OP ---
Date of Service: 04/29/22 Preoperative diagnosis: Subacute nonsuppurative otitis media, left with right eustachian tube dysfunction Postoperative diagnosis: Same Procedure: bilateral myringotomy and tympanostomy tube placement Surgeon: Avril Slade MD Courtroom Deputy Or Calendar Clerk: None Anesthesia: General via inhalational mask Estimated blood loss: Nil Fluids/blood products: Crystalloid, 200 mL Specimen: None Implants: Tiny T tubes Findings: No middle ear fluid Indication: The patient had left acute otitis media in February 2022 treated with antibiotics. 1 month later she had persistent middle ear fluid with subjective hearing loss and felt her right ear was beginning to develop similar symptoms. We discussed conservative measures including observation and counseled the patient that middle ear fluid typically does resolve within 90 days. The patient was significantly bothered by the fluid, difficulty hearing and was very concerned about the risk of developing a similar, painful infection on the right ear. Her tympanogram in March demonstrated left type B with normal ear canal volume, confirming middle ear fluid. The right side was very shallow demonstrating minimal movement of the eardrum. The risks and benefits were discussed and the patient felt strongly about proceeding with placement of tympanostomy tubes. Details of operation: The patient was brought to the operating room and placed under general anesthesia via inhalational mask. The left ear was visualized under the operating microscope with assistance of an ear speculum. A myringotomy incision was made in the anterior-inferior quadrant and no fluid was aspirated from the middle ear space. A tiny T tube was positioned across the incision using an alligator forcep and pick. A similar procedure was performed on the right side. A myringotomy incision was made in the anterior-inferior quadrant and no fluid was aspirated from the middle ear space. A tiny T tube was positioned across the incision using an alligator forcep and pick. The procedure was concluded and the patient was awakened from anesthesia and transported to the recovery room in stable condition. Disposition the patient will be discharged home later today in the care of their family and follow-up with Dr. Slade's office in approximately 1 to 2 weeks.
[2022-04-29] MEDS ORDERED: IBUPROFEN 400 MG TAB ONE (10:08)
[2022-04-29 10:14] VITALS: BP 128/68; TEMP 97.6; O2SAT 99
== END 2022-04-29 10:26 | disposition home or self-care (01) ==
LOC: OR 07:57
PROVIDERS: ATTEND Otolaryngology
PROC: 099570Z Drainage of Right Middle Ear with Drainage Device, Via Natural or Artificial Opening (ICD-10-PCS; 2022-04-29)
PROC: 099670Z Drainage of Left Middle Ear with Drainage Device, Via Natural or Artificial Opening (ICD-10-PCS; principal; 2022-04-29 09:00)
DX: H65.192 Other acute nonsuppurative otitis media, left ear (principal); H65.33 Chronic mucoid otitis media, bilateral
CPT/HCPCS: 69436; J2704; J2001; J2250; J7120; J2405; J3010

== ENCOUNTER 2022-10-26 20:12 | Emergency (ER) | payer BC ==
--- OUTSIDE RECORDS SUMMARY | 2022-10-26 20:21 | XMS REPORT | Continuity of Care Document ---
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 2015-09-14 2015-09-15 [facility] [id number] Memoria 13:08:00 04:59:[address] 00 [facility] 2015-09-14 2015-09-15 [facility] [id number] Memoria 13:08:00 04:59:00 Surgery r [place] 00 [facility] 2015-09-14 2015-09-15 O[facility] [id number] Memoria 13:08:00 04:59:00 Surgery r [place] 00 [facility] 2015-09-14 2015-09-14 Outpatient Sam [facility] [id number] 08:08:00 23:59:00 Evan Sanders 2015-09-14 2015-09-14 [facility] [id number] 08:08:00 23:59:00 Evan Sanders Results Test Description Test Time Test Comments Results Result Comments Source SARS-CoV-2 (COVID-19) RNA [Presence] in Respiratory sp ecimen by 2020-06-05 21:40:13 RUBEN with probe detection Test Item Value Reference Range Interpretation Comme nts SARS-CoV-2 (COVID-19) RNA [Presence] in Respiratory Not detected No t-Detected specimen by RUBEN with probe detection (test code = 52947-9) [facility]2020-03-11 00:08:00 Test Item Value Reference Range Interpretation Comments WBC (test code = WBC) 8.7 3.7-10.4 [facility]hamIjggvetKILJJJLRMO7100-42-40 00:08:00 Test Item Value Reference Range Interpretation Comments RBC (test code = RBC) 4.88 4.20-5.40 [facility]hamXaiwjufECQETEXSDH7744-57-96 00:08:00 Test Item Value Reference Range Interpretation Comments Hgb (test code = Hgb) 13.9 12.0-16.0 [facility]hamRmefaitTFRNYSTMOD6018-04-14 00:08:00 Test Item Value Reference Range Interpretation Comments Hct (test code = Hct) 42.4 36.0-48.0 [facility] BrenhamIkthoryAEUKXHPERN5655-69-42 00:08:00 Test Item Value Reference Range Interpretation Comments MCV (test code = MCV) 86.9 80.0-98.0 [facility] BrenhamRcuazhrSLZVOIKKCU6032-52-82 00:08:00 Test Item Value Reference Range Interpretation Comments MCH (test code = MCH) 28.4 pg 27.0-31.0 [facility] BrenhamGyfbyriARBCBRBGPF6495-10-05 00:08:00 Test Item Value Reference Range Interpretation Comments MCHC (test code = MCHC) 32.7 32.0-36.0 [facility]hamOxpxbyaRHZGFPBDAJ3776-51-62 00:08:00 Test Item Value Reference Range Interpretation Comments RDW (test code = RDW) 18.1 11.5-14.5 [facility]hamCosexnzVBKMXEMAJC2499-60-06 00:08:00 Test Item Value Reference Range Interpretation Comments Platelet (test code = Platelet) 329 133-450 [facility] BrenhamNpxyormEDFXOXPBZH8063-53-89 00:08:00 Test Item Value Reference Range Interpretation Comments MPV (test code = MPV) 8.2 7.4-10.4 [facility] BrenhamTjddmkcOIZNJEPPHQ1554-18-77 00:08:00 Test Item Value Reference Range Interpretation Comments Segs (test code = Segs) 53.2 45.0-75.0 [facility] BrenhamUgwvlqnQYJLESHYPO7640-50-50 00:08:00 Test Item Value Reference Range Interpretation Comments Lymphocytes (test code = Lymphocytes) 36.0 20.0-40.0 [place] [address]-03-11 00:08:00 Test Item Value Reference Range Interpretation Comments Monocytes (test code = Monocytes) 8.3 2.0-12.0 [facility] BrenhamAabzhcpEKNTXQIWWO3793-05-50 00:08:00 Test Item Value Reference Range Interpretation Comments Eosinophils (test code = 1.8 See_Comment [A utomated message] The Eosinophils) system which ge nerated this result tra nsmitted reference range : <=4.0. The reference r yuval was not used to int erpret this result as normal/abnormal . [facility]hamUdrkirwPDVXODQIMK9061-11-47 00:08:00 Test Item Value Reference Range Interpretation Comments Basophils (test code = 0.7 See_Comment [Aut omated message] The Basophils) system which ge nerated this result tra nsmitted reference range : <=1.0. The reference r yuval was not used to int erpret this result as normal/abnormal . [facility] BrenhamIbrvgjkIFKLUNKARS5030-89-84 00:08:00 Test Item Value Reference Range Interpretation Comments Neutrophils # (test code = Neutrophils 4.6 1.5-8.1 #) [facility] BrenhamYtexsnwQONYUGBRER5694-91-16 00:08:00 Test Item Value Reference Range Interpretation Comments Lymphocytes # (test code = Lymphocytes 3.1 1.0-5.5 #) [facility] BrenhamCenqqamZGOAIICADJ3013-30-21 00:08:00 Test Item Value Reference Range Interpretation Comments Monocytes # (test code 0.7 See_Comment [Aut omated message] The = Monocytes #) system which generated this result tra nsmitted reference range : <=0.8. The reference r yuval was not used to int erpret this result as normal/abnormal . [place] 790590-03-11 00:08:00 Test Item Value Reference Range Interpretation Comments Eosinophils # (test code 0.2 See_Comment [A utomated message] The = Eosinophils #) system whic h generated this result tra nsmitted reference range : <=0.5. The reference r yuval was not used to int erpret this result as normal/abnormal . [place] 790590-03-11 00:08:00 Test Item Value Reference Range Interpretation Comments Basophils # (test code 0.1 See_Comment [Aut omated message] The = Basophils #) system which generated this result tra nsmitted reference range : <=0.2. The reference r yuval was not used to int erpret this result as normal/abnormal . [facility]hamTwfunkgWHCNRGXRNL0253-27-97 00:08:00 Test Item Value Reference Range Interpretation Comments WBC (test code = WBC) 8.7 3.7-10.4 [facility]hamCgzzddcDUZZVMUPMD7332-38-12 00:08:00 Test Item Value Reference Range Interpretation Comments RBC (test code = RBC) 4.88 4.20-5.40 [facility] BrenhamLaezgdoKBNIHZNTKE6316-29-06 00:08:00 Test Item Value Reference Range Interpretation Comments Hgb (test code = Hgb) 13.9 12.0-16.0 [facility] BrenhamNkmfueiBWIOSOPJVI0596-78-86 00:08:00 Test Item Value Reference Range Interpretation Comments Hct (test code = Hct) 42.4 36.0-48.0 [facility] BrenhamRiqfkxtSCXNUWEQRZ5080-12-82 00:08:00 Test Item Value Reference Range Interpretation Comments MCV (test code = MCV) 86.9 80.0-98.0 [facility] BrenhamUywdehsNDYALVNRZU2011-04-20 00:08:00 Test Item Value Reference Range Interpretation Comments MCH (test code = MCH) 28.4 pg 27.0-31.0 [facility] BrenhamUhagdemMOCSYSLQCW6265-12-48 00:08:00 Test Item Value Reference Range Interpretation Comments MCHC (test code = MCHC) 32.7 32.0-36.0 [facility] BrenhamYsloughXTOSPNERIR7391-66-98 00:08:00 Test Item Value Reference Range Interpretation Comments RDW (test code = RDW) 18.1 11.5-14.5 [facility]hamXfipukqTVXEGOLRGA2261-86-11 00:08:00 Test Item Value Reference Range Interpretation Comments Platelet (test code = Platelet) 329 133-450 [facility] BrenhamOrrunxkHNTZYROSKV9256-76-86 00:08:00 Test Item Value Reference Range Interpretation Comments MPV (test code = MPV) 8.2 7.4-10.4 [facility]hamNhxirvvSYSTUSCYVV3902-28-96 00:08:00 Test Item Value Reference Range Interpretation Comments Segs (test code = Segs) 53.2 45.0-75.0 [facility] BrenhamMeippgmDLKXWLEDRA8784-04-99 00:08:00 Test Item Value Reference Range Interpretation Comments Lymphocytes (test code = Lymphocytes) 36.0 20.0-40.0 [facility] BrenhamGuxylbfQNQCDNYFZU7265-78-85 00:08:00 Test Item Value Reference Range Interpretation Comments Monocytes (test code = Monocytes) 8.3 2.0-12.0 [facility] BrenhamZqtrqkyKKNMFRJLCS4936-56-59 00:08:00 Test Item Value Reference Range Interpretation Comments Eosinophils (test code = 1.8 See_Comment [A utomated message] The Eosinophils) system which ge nerated this result tra nsmitted reference range : <=4.0. The reference r yuval was not used to int erpret this result as normal/abnormal . [facility] BrenhamUnhbkwsCVBETHGHTV8996-14-33 00:08:00 Test Item Value Reference Range Interpretation Comments Basophils (test code = 0.7 See_Comment [Aut omated message] The Basophils) system which ge nerated this result tra nsmitted reference range : <=1.0. The reference r yuval was not used to int erpret this result as normal/abnormal . [facility] BrenhamCchkfkuQEFKWATLIE9579-40-59 00:08:00 Test Item Value Reference Range Interpretation Comments Neutrophils # (test code = Neutrophils 4.6 1.5-8.1 #) [facility] BrenhamGkihkalUWHHRAKAQF2838-87-69 00:08:00 Test Item Value Reference Range Interpretation Comments Lymphocytes # (test code = Lymphocytes 3.1 1.0-5.5 #) [facility] BrenhamLdnxlrfOFKJKMPJOS8651-72-23 00:08:00 Test Item Value Reference Range Interpretation Comments Monocytes # (test code 0.7 See_Comment [Aut omated message] The = Monocytes #) system which generated this result tra nsmitted reference range : <=0.8. The reference r yuval was not used to int erpret this result as normal/abnormal . [facility] BrenhamAllmbzvVYVYFDLTGM0684-71-80 00:08:00 Test Item Value Reference Range Interpretation Comments Eosinophils # (test code 0.2 See_Comment [A utomated message] The = Eosinophils #) system whic h generated this result tra nsmitted reference range : <=0.5. The reference r yuval was not used to int erpret this result as normal/abnormal . [facility] BrenhamBkozfahBTFBVMTIDX5946-77-83 00:08:00 Test Item Value Reference Range Interpretation Comments Basophils # (test code 0.1 See_Comment [Aut omated message] The = Basophils #) system which generated this result tra nsmitted reference range : <=0.2. The reference r yuval was not used to int erpret this result as normal/abnormal . [facility] BrenhamTgldeldPVSHEXNZDA8975-82-33 00:08:00 Test Item Value Reference Range Interpretation Comments WBC (test code = WBC) 8.7 3.7-10.4 [facility] BrenhamTawiqtuDTRKOPGSPJ3701-94-74 00:08:00 Test Item Value Reference Range Interpretation Comments RBC (test code = RBC) 4.88 4.20-5.40 [facility] BrenhamWutkgdnBDGBYPEUEN6816-59-98 00:08:00 Test Item Value Reference Range Interpretation Comments Hgb (test code = Hgb) 13.9 12.0-16.0 [facility] BrenhamWbjmflrHKHBABAMCR1234-42-87 00:08:00 Test Item Value Reference Range Interpretation Comments Hct (test code = Hct) 42.4 36.0-48.0 [facility] BrenhamFrogzxnSUIGITMAAM5037-97-97 00:08:00 Test Item Value Reference Range Interpretation Comments MCV (test code = MCV) 86.9 80.0-98.0 [facility] BrenhamDewnameDMBOVUOAMA6009-89-11 00:08:00 Test Item Value Reference Range Interpretation Comments MCH (test code = MCH) 28.4 pg 27.0-31.0 [facility] BrenhamArdemwbIPENMCFCHH5959-39-66 00:08:00 Test Item Value Reference Range Interpretation Comments MCHC (test code = MCHC) 32.7 32.0-36.0 [facility] BrenhamQyacxuyZZNYCNLERS2496-25-81 00:08:00 Test Item Value Reference Range Interpretation Comments RDW (test code = RDW) 18.1 11.5-14.5 [facility] BrenhamAeznaebGRYGEHFCEG5164-42-22 00:08:00 Test Item Value Reference Range Interpretation Comments Platelet (test code = Platelet) 329 133-450 [facility] BrenhamGxynfdsCFJOAKLPCG7111-71-01 00:08:00 Test Item Value Reference Range Interpretation Comments MPV (test code = MPV) 8.2 7.4-10.4 [facility] BrenhamVdehjrkFUPLNKFAJA8939-11-42 00:08:00 Test Item Value Reference Range Interpretation Comments Segs (test code = Segs) 53.2 45.0-75.0 [facility] BrenhamSybzmrfJOUEZQZDKP7978-77-64 00:08:00 Test Item Value Reference Range Interpretation Comments Lymphocytes (test code = Lymphocytes) 36.0 20.0-40.0 [facility] BrenhamSpddzzjVGDYSZOYFG8340-35-90 00:08:00 Test Item Value Reference Range Interpretation Comments Monocytes (test code = Monocytes) 8.3 2.0-12.0 [facility] BrenhamSeenuvtGTFTBPXGCI5590-14-96 00:08:00 Test Item Value Reference Range Interpretation Comments Eosinophils (test code = 1.8 See_Comment [A utomated message] The Eosinophils) system which ge nerated this result tra nsmitted reference range : <=4.0. The reference r yuval was not used to int erpret this result as normal/abnormal . [facility] BrenhamRoilrvnPGBMMSWOIP9278-60-27 00:08:00 Test Item Value Reference Range Interpretation Comments Basophils (test code = 0.7 See_Comment [Aut omated message] The Basophils) system which ge nerated this result tra nsmitted reference range : <=1.0. The reference r yuval was not used to int erpret this result as normal/abnormal . [facility] BrenhamVdjkcdmEOJWIASQEV2523-61-10 00:08:00 Test Item Value Reference Range Interpretation Comments Neutrophils # (test code = Neutrophils 4.6 1.5-8.1 #) [facility] BrenhamLnhcldsNFCJUDATSA1645-43-97 00:08:00 Test Item Value Reference Range Interpretation Comments Lymphocytes # (test code = Lymphocytes 3.1 1.0-5.5 #) [facility] BrenhamJqhtpfiSYSTDGVTAH5560-52-23 00:08:00 Test Item Value Reference Range Interpretation Comments Monocytes # (test code 0.7 See_Comment [Aut omated message] The = Monocytes #) system which generated this result tra nsmitted reference range : <=0.8. The reference r uyval was not used to int erpret this result as normal/abnormal . [facility] BrenhamZmvqixhTSXGNRWSPO0610-57-02 00:08:00 Test Item Value Reference Range Interpretation Comments Eosinophils # (test code 0.2 See_Comment [A utomated message] The = Eosinophils #) system whic h generated this result tra nsmitted reference range : <=0.5. The reference r yuval was not used to int erpret this result as normal/abnormal . [facility] BrenhamEdwulgmUMNEKJSJLC2574-57-72 00:08:00 Test Item Value Reference Range Interpretation Comments Basophils # (test code 0.1 See_Comment [Aut omated message] The = Basophils #) system which generated this result tra nsmitted reference range : <=0.2. The reference r yuval was not used to int erpret this result as normal/abnormal . [facility] BrenhamMqyvmviDQCDAQJZSJ8353-62-21 00:08:00 Test Item Value Reference Range Interpretation Comments WBC (test code = WBC) 8.7 3.7-10.4 [facility] BrenhamUxymcueFWXOLXLCWV4565-22-53 00:08:00 Test Item Value Reference Range Interpretation Comments RBC (test code = RBC) 4.88 4.20-5.40 [facility] BrenhamMzsgyfjFTWTRRMUIH4837-57-88 00:08:00 Test Item Value Reference Range Interpretation Comments Hgb (test code = Hgb) 13.9 12.0-16.0 [facility] BrenhamBjpczdoQUAEFBIKLV2615-00-31 00:08:00 Test Item Value Reference Range Interpretation Comments Hct (test code = Hct) 42.4 36.0-48.0 [facility] BrenhamMjixlmlQVAOFUBYEU8230-63-89 00:08:00 Test Item Value Reference Range Interpretation Comments MCV (test code = MCV) 86.9 80.0-98.0 [facility] BrenhamGkknhlkSNBOGAGVMW7620-50-50 00:08:00 Test Item Value Reference Range Interpretation Comments MCH (test code = MCH) 28.4 pg 27.0-31.0 [facility] BrenhamOwdzxzhXQPKBYYQEW7873-46-00 00:08:00 Test Item Value Reference Range Interpretation Comments MCHC (test code = MCHC) 32.7 32.0-36.0 [facility] BrenhamJqkbejoIZOQZCULCC5345-89-84 00:08:00 Test Item Value Reference Range Interpretation Comments RDW (test code = RDW) 18.1 11.5-14.5 [facility] BrenhamVmgmvspRBMNKAWNTQ9325-91-04 00:08:00 Test Item Value Reference Range Interpretation Comments Platelet (test code = Platelet) 329 133-450 [facility] BrenhamZxunlvbBZESOUFLNQ8135-95-13 00:08:00 Test Item Value Reference Range Interpretation Comments MPV (test code = MPV) 8.2 7.4-10.4 [facility] BrenhamWltbnbwHKCHBVZYFV9259-34-09 00:08:00 Test Item Value Reference Range Interpretation Comments Segs (test code = Segs) 53.2 45.0-75.0 [facility] BrenhamXrlkgivDOITRGTEHA3062-15-50 00:08:00 Test Item Value Reference Range Interpretation Comments Lymphocytes (test code = Lymphocytes) 36.0 20.0-40.0 [facility] BrenhamZcdtzqcLCGJQPQKNA8585-23-06 00:08:00 Test Item Value Reference Range Interpretation Comments Monocytes (test code = Monocytes) 8.3 2.0-12.0 [facility] BrenhamRwkhtgfZABECUDCEX7173-41-46 00:08:00 Test Item Value Reference Range Interpretation Comments Eosinophils (test code = 1.8 See_Comment [A utomated message] The Eosinophils) system which ge nerated this result tra nsmitted reference range : <=4.0. The reference r yuval was not used to int erpret this result as normal/abnormal . [facility] BrenhamVoiedjmDSQRGIIYRD8498-89-14 00:08:00 Test Item Value Reference Range Interpretation Comments Basophils (test code = 0.7 See_Comment [Aut omated message] The Basophils) system which ge nerated this result tra nsmitted reference range : <=1.0. The reference r yuval was not used to int erpret this result as normal/abnormal . [facility] BrenhamXvqknsmEJOVHVMLFB1951-87-48 00:08:00 Test Item Value Reference Range Interpretation Comments Neutrophils # (test code = Neutrophils 4.6 1.5-8.1 #) [facility] BrenhamPrkoldcRSWMGMFFQA0837-72-74 00:08:00 Test Item Value Reference Range Interpretation Comments Lymphocytes # (test code = Lymphocytes 3.1 1.0-5.5 #) [facility] BrenhamHutycmgJKWDNXPQNK7918-19-65 00:08:00 Test Item Value Reference Range Interpretation Comments Monocytes # (test code 0.7 See_Comment [Aut omated message] The = Monocytes #) system which generated this result tra nsmitted reference range : <=0.8. The reference r yuval was not used to int erpret this result as normal/abnormal . [facility] BrenhamPbttaizPKSGZNNHCK8229-58-25 00:08:00 Test Item Value Reference Range Interpretation Comments Eosinophils # (test code 0.2 See_Comment [A utomated message] The = Eosinophils #) system ic h generated this result tra nsmitted reference range : <=0.5. The reference r yuval was not used to int erpret this result as normal/abnormal . [facility] BrenhamKzwznzbNRMTBYGVLJ7757-05-26 00:08:00 Test Item Value Reference Range Interpretation Comments Basophils # (test code 0.1 See_Comment [Aut omated message] The = Basophils #) system which generated this result tra nsmitted reference range : <=0.2. The reference r yuval was not used to int erpret this result as normal/abnormal . [facility] BrenhamDzigkrjQIJECUNIFM4517-78-81 00:08:00 Test Item Value Reference Range Interpretation Comments WBC (test code = WBC) 8.7 3.7-10.4 [facility] BrenhamUspeiolZDBLFRFHRU6721-63-38 00:08:00 Test Item Value Reference Range Interpretation Comments RBC (test code = RBC) 4.88 4.20-5.40 [facility] BrenhamNkvtkzfOEEVSMXHNE7908-79-84 00:08:00 Test Item Value Reference Range Interpretation Comments Hgb (test code = Hgb) 13.9 12.0-16.0 [facility] BrenhamFkkoolsVONBBTIHEJ4152-90-25 00:08:00 Test Item Value Reference Range Interpretation Comments Hct (test code = Hct) 42.4 36.0-48.0 [facility] BrenhamAgfzdewNLQMJMTFDK3082-39-06 00:08:00 Test Item Value Reference Range Interpretation Comments MCV (test code = MCV) 86.9 80.0-98.0 [facility] BrenhamVkicyhqPDOUJQUVFB8440-40-73 00:08:00 Test Item Value Reference Range Interpretation Comments MCH (test code = MCH) 28.4 pg 27.0-31.0 [facility] BrenhamJxgtnscLPPOIMQXEW2414-32-95 00:08:00 Test Item Value Reference Range Interpretation Comments MCHC (test code = MCHC) 32.7 32.0-36.0 [facility] BrenhamDnqoufbCISSBFEGNE5684-07-76 00:08:00 Test Item Value Reference Range Interpretation Comments RDW (test code = RDW) 18.1 11.5-14.5 [facility] BrenhamDiziqnlDSMSLFRGVY5197-69-85 00:08:00 Test Item Value Reference Range Interpretation Comments Platelet (test code = Platelet) 329 133-450 [facility] BrenhamGahybgtKKDAXINABC7252-69-91 00:08:00 Test Item Value Reference Range Interpretation Comments MPV (test code = MPV) 8.2 7.4-10.4 [facility] BrenhamOemhakmHHWVMAOWXY9231-73-59 00:08:00 Test Item Value Reference Range Interpretation Comments Segs (test code = Segs) 53.2 45.0-75.0 [facility] BrenhamNzwwzokAJFOWLTSSO8618-57-14 00:08:00 Test Item Value Reference Range Interpretation Comments Lymphocytes (test code = Lymphocytes) 36.0 20.0-40.0 [place] [id number] 00:08:00 Test Item Value Reference Range Interpretation Comments Monocytes (test code = Monocytes) 8.3 2.0-12.0 [id number] 00:08:00 Test Item Value Reference Range Interpretation Comments Eosinophils (test code = 1.8 See_Comment [A utomated message] The Eosinophils) system which ge nerated this result tra nsmitted reference range : <=4.0. The reference r yuval was not used to int erpret this result as normal/abnormal . [id number] 00:08:00 Test Item Value Reference Range Interpretation Comments Basophils (test code = 0.7 See_Comment [Aut omated message] The Basophils) system which ge nerated this result tra nsmitted reference range : <=1.0. The reference r yuval was not used to int erpret this result as normal/abnormal . [id number] 00:08:00 Test Item Value Reference Range Interpretation Comments Neutrophils # (test code = Neutrophils 4.6 1.5-8.1 #) [id number] 00:08:00 Test Item Value Reference Range Interpretation Comments Lymphocytes # (test code = Lymphocytes 3.1 1.0-5.5 #) [id number] 00:08:00 Test Item Value Reference Range Interpretation Comments Monocytes # (test code 0.7 See_Comment [Aut omated message] The = Monocytes #) system which generated this result tra nsmitted reference range : <=0.8. The reference r yuval was not used to int erpret this result as normal/abnormal . [id number] 00:08:00 Test Item Value Reference Range Interpretation Comments Eosinophils # (test code 0.2 See_Comment [A utomated message] The = Eosinophils #) system wh h generated this result tra nsmitted reference range : <=0.5. The reference r yuval was not used to int erpret this result as normal/abnormal . [facility]:00 Test Item Value Reference Range Interpretation Comments Basophils # (test code 0.1 See_Comment [Aut omated message] The = Basophils #) system which generated this result tra nsmitted reference range : <=0.2. The reference r yuval was not used to int erpret this result as normal/abnormal . [facility] [id number] 22:55:00 Test Item Value Reference Range Interpretation Comments Glucose Lvl (test code = Glucose Lvl) 109 70-99 [place] [id number] 22:55:00 Test Item Value Reference Range Interpretation Comments BUN (test code = BUN) 8 7-22 [place] [id number] 22:55:00 Test Item Value Reference Range Interpretation Comments Creatinine Lvl (test code = Creatinine 0.84 0.50-1.40 Lvl) [facility]2020-03-10 22:55:00 Test Item Value Reference Range Interpretation Comments Sodium Lvl (test code = Sodium Lvl) 140 135-145 [facility] [id number] 22:55:00 Test Item Value Reference Range Interpretation Comments Potassium Lvl (test code = Potassium 4.4 3.5-5.1 Lvl) [facility]2020-03-10 22:55:00 Test Item Value Reference Range Interpretation Comments Chloride Lvl (test code = Chloride Lvl) 107 95-109 [facility] [id number] 22:55:00 Test Item Value Reference Range Interpretation Comments CO2 (test code = CO2) 25 24-32 [facility] [id number] 22:55:00 Test Item Value Reference Range Interpretation Comments Calcium Lvl (test code = Calcium Lvl) 8.8 8.5-10.5 [place] [address]-03-10 22:55:00 Test Item Value Reference Range Interpretation Comments Total Protein (test code = Total 7.3 6.4-8.4 Protein) [facility]2020-03-10 22:55:00 Test Item Value Reference Range Interpretation Comments Albumin Lvl (test code = Albumin Lvl) 3.7 3.5-5.0 [facility] HospitalfluIT BiosystemsCHEM [id number] 22:55:00 Test Item Value Reference Range Interpretation Comments ALT (test code = ALT) 28 See_Comment [Auto mated message] The system which ge nerated this result transmit kenyon reference range : <=65. The reference range was not used to interpr et this result as robinson l/abnormal. [facility] [employer] [id number] 22:55:00 Test Item Value Reference Range Interpretation Comments AST (test code = AST) 52 See_Comment [Auto mated message] The system which ge nerated this result transmit kenyon reference range : <=37. The reference range was not used to interpr et this result as robinson l/abnormal. [facility] [id number] 22:55:00 Test Item Value Reference Range Interpretation Comments Alk Phos (test code = Alk Phos) 114 39-136 [facility] [employer]0-03-10 22:55:00 Test Item Value Reference Range Interpretation Comments Bili Total (test code = Bili Total) 0.3 0.2-1.3 [facility] [employer]com0-03-10 22:55:00 Test Item Value Reference Range Interpretation Comments AGAP (test code = AGAP) 12.4 10.0-20.0 [facility] [employer].com0-03-10 22:55:00 Test Item Value Reference Range Interpretation Comments B/C Ratio (test code = B/C Ratio) 10 1 6-25 [facility] Cono-C-03-10 22:55:00 Test Item Value Reference Range Interpretation Comments Globulin (test code = Globulin) 3.6 2.7-4.2 [facility] [employer]com0-03-10 22:55:00 Test Item Value Reference Range Interpretation Comments A/G Ratio (test code = A/G Ratio) 1.0 1 0.7-1.6 [facility] [employer]com0-03-10 22:55:00 Test Item Value Reference Range Interpretation Comments eGFR (test code = eGFR) 91 [facility] [employer] AND [id number] 22:55:00 Test Item Value Reference Range Interpretation Comments UA Color (test code = Light Yellow UA Color) *NA*(07/16/19 5:55 PM) [facility] [employer] AND [id number] 22:55:00 Test Item Value Reference Range Interpretation Comments UA Turbidity (test code Marked *ABN*(07/16/19 = UA Turbidity) 5:55 PM) [facility] AND [id number] 22:55:00 Test Item Value Reference Range Interpretation Comments UA Spec Grav (test code = UA Spec 1.004 1 Grav) [facility] AND [id number] 22:55:00 Test Item Value Reference Range Interpretation Comments UA pH (test code = UA pH) 8.0 1 5.0-8.0 [facility] AND [id number] 22:55:00 Test Item Value Reference Range Interpretation Comments UA Protein (test code Negative (07/16/19 5:55 = UA Protein) PM) [facility] AND [id number] 22:55:00 Test Item Value Reference Range Interpretation Comments UA Glucose (test code Negative *NA*(07/16/19 = UA Glucose) 5:55 PM) [facility] AND [id number] 22:55:00 Test Item Value Reference Range Interpretation Comments UA Ketones (test code Negative *NA*(07/16/19 = UA Ketones) 5:55 PM) [facility] AND [id number] 22:55:00 Test Item Value Reference Range Interpretation Comments UA Bili (test code = Negative *NA*(07/16/19 UA Bili) 5:55 PM) [facility] AND [id number] 22:55:00 Test Item Value Reference Range Interpretation Comments UA Blood (test code = Large *ABN*(07/16/19 UA Blood) 5:55 PM) [facility] AND [id number] 22:55:00 Test Item Value Reference Range Interpretation Comments UA Urobilinogen (test code = UA <=1.0 mg/dL 0.1-1.0 Urobilinogen) [facility] AND [id number] 22:55:00 Test Item Value Reference Range Interpretation Comments UA Nitrite (test code Negative (07/16/19 5:55 = UA Nitrite) PM) [facility] AND [id number] 22:55:00 Test Item Value Reference Range Interpretation Comments UA Leuk Est (test code Trace *ABN*(07/16/19 = UA Leuk Est) 5:55 PM) [facility] AND [id number] 22:55:00 Test Item Value Reference Range Interpretation Comments UA Sq Epi (test code = UA Sq Epi) Many /LPF [facility] AND [id number] 22:55:00 Test Item Value Reference Range Interpretation Comments UA WBC (test code = 4 See_Comment [Automa kenyon message] The UA WBC) system which ge nerated this result transmit kenyon reference range : <=5. The reference range was not used to interpr et this result as robinson l/abnormal. [facility] AND [id number] 22:55:00 Test Item Value Reference Range Interpretation Comments UA RBC (test code = 37 See_Comment [Automa kenyon message] The UA RBC) system which ge nerated this result transmit kenyon reference range : <=2. The reference range was not used to interpr et this result as robinson l/abnormal. [facility] AND [id number] 22:55:00 Test Item Value Reference Range Interpretation Comments UA Bacteria (test code = UA Many /HPF Bacteria) [facility] [id number] 22:55:00 Test Item Value Reference Range Interpretation Comments U Preg (test code = U Negative (07/16/19 5:55 Preg) PM) [facility] [id number] 22:55:00 Test Item Value Reference Range Interpretation Comments Glucose Lvl (test code = Glucose Lvl) 109 70-99 [facility] [id number] 22:55:00 Test Item Value Reference Range Interpretation Comments BUN (test code = BUN) 8 7-22 [facility] [id number] 22:55:00 Test Item Value Reference Range Interpretation Comments Creatinine Lvl (test code = Creatinine 0.84 0.50-1.40 Lvl) [facility] [id number] 22:55:00 Test Item Value Reference Range Interpretation Comments Sodium Lvl (test code = Sodium Lvl) 140 135-145 [facility] [id number] 22:55:00 Test Item Value Reference Range Interpretation Comments Potassium Lvl (test code = Potassium 4.4 3.5-5.1 Lvl) [facility] [id number] 22:55:00 Test Item Value Reference Range Interpretation Comments Chloride Lvl (test code = Chloride Lvl) 107 95-109 [facility] [employer] [id number] 22:55:00 Test Item Value Reference Range Interpretation Comments CO2 (test code = CO2) 25 24-32 [facility] [employer] [id number] 22:55:00 Test Item Value Reference Range Interpretation Comments Calcium Lvl (test code = Calcium Lvl) 8.8 8.5-10.5 [facility] [employer] [id number] 22:55:00 Test Item Value Reference Range Interpretation Comments Total Protein (test code = Total 7.3 6.4-8.4 Protein) [facility] [employer] [id number] 22:55:00 Test Item Value Reference Range Interpretation Comments Albumin Lvl (test code = Albumin Lvl) 3.7 3.5-5.0 [facility] [employer] [id number] 22:55:00 Test Item Value Reference Range Interpretation Comments ALT (test code = ALT) 28 See_Comment [Auto mated message] The system which ge nerated this result transmit kenyon reference range : <=65. The reference range was not used to interpr et this result as robinson l/abnormal. [facility] [employer] [id number] 22:55:00 Test Item Value Reference Range Interpretation Comments AST (test code = AST) 52 See_Comment [Auto mated message] The system which ge nerated this result transmit kenyon reference range : <=37. The reference range was not used to interpr et this result as robinson l/abnormal. [facility] [employer] [id number] 22:55:00 Test Item Value Reference Range Interpretation Comments Alk Phos (test code = Alk Phos) 114 39-136 [facility] [employer] [id number] 22:55:00 Test Item Value Reference Range Interpretation Comments Bili Total (test code = Bili Total) 0.3 0.2-1.3 [facility] [employer] [id number] 22:55:00 Test Item Value Reference Range Interpretation Comments AGAP (test code = AGAP) 12.4 10.0-20.0 [facility] [employer] [id number] 22:55:00 Test Item Value Reference Range Interpretation Comments B/C Ratio (test code = B/C Ratio) 10 1 6-25 [facility]villeCHE[facility] [id number] 22:55:00 Test Item Value Reference Range Interpretation Comments Globulin (test code = Globulin) 3.6 2.7-4.2 [facility]villeCHE[facility] [id number] 22:55:00 Test Item Value Reference Range Interpretation Comments A/G Ratio (test code = A/G Ratio) 1.0 1 0.7-1.6 [facility] [id number] 22:55:00 Test Item Value Reference Range Interpretation Comments eGFR (test code = eGFR) 91 [facility] AND [id number] 22:55:00 Test Item Value Reference Range Interpretation Comments UA Color (test code = Light Yellow UA Color) *NA*(07/16/19 5:55 PM) [facility] AND [id number] 22:55:00 Test Item Value Reference Range Interpretation Comments UA Turbidity (test code Marked *ABN*(07/16/19 = UA Turbidity) 5:55 PM) [facility] AND [id number] 22:55:00 Test Item Value Reference Range Interpretation Comments UA Spec Grav (test code = UA Spec 1.004 1 Grav) [facility] AND [id number] 22:55:00 Test Item Value Reference Range Interpretation Comments UA pH (test code = UA pH) 8.0 1 5.0-8.0 [facility] AND [id number] 22:55:00 Test Item Value Reference Range Interpretation Comments UA Protein (test code Negative (07/16/19 5:55 = UA Protein) PM) [facility] AND [id number] 22:55:00 Test Item Value Reference Range Interpretation Comments UA Glucose (test code Negative *NA*(07/16/19 = UA Glucose) 5:55 PM) [facility] AND [id number] 22:55:00 Test Item Value Reference Range Interpretation Comments UA Ketones (test code Negative *NA*(07/16/19 = UA Ketones) 5:55 PM) [facility] AND [id number] 22:55:00 Test Item Value Reference Range Interpretation Comments UA Bili (test code = Negative *NA*(07/16/19 UA Bili) 5:55 PM) [facility] AND [id number] 22:55:00 Test Item Value Reference Range Interpretation Comments UA Blood (test code = Large *ABN*(07/16/19 UA Blood) 5:55 PM) [facility] [id number] 22:55:00 Test Item Value Reference Range Interpretation Comments UA Urobilinogen (test code = UA <=1.0 mg/dL 0.1-1.0 Urobilinogen) [facility] [id number] 22:55:00 Test Item Value Reference Range Interpretation Comments UA Nitrite (test code Negative (07/16/19 5:55 = UA Nitrite) PM) [facility] [id number] 22:55:00 Test Item Value Reference Range Interpretation Comments UA Leuk Est (test code Trace *ABN*(07/16/19 = UA Leuk Est) 5:55 PM) [facility] AND [id number] 22:55:00 Test Item Value Reference Range Interpretation Comments UA Sq Epi (test code = UA Sq Epi) Many /LPF [facility] AND [id number] 22:55:00 Test Item Value Reference Range Interpretation Comments UA WBC (test code = 4 See_Comment [Automa kenyon message] The UA WBC) system which ge nerated this result transmit kenyon reference range : <=5. The reference range was not used to interpr et this result as robinson l/abnormal. [facility] AND [id number] 22:55:00 Test Item Value Reference Range Interpretation Comments UA RBC (test code = 37 See_Comment [Automa kenyon message] The UA RBC) system which ge nerated this result transmit kenyon reference range : <=2. The reference range was not used to interpr et this result as robinson l/abnormal. [facility] AND [id number] 22:55:00 Test Item Value Reference Range Interpretation Comments UA Bacteria (test code = UA Many /HPF Bacteria) [facility] [id number] 22:55:00 Test Item Value Reference Range Interpretation Comments U Preg (test code = U Negative (07/16/19 5:55 Preg) PM) [facility]annCHE[facility] [id number] 22:55:00 Test Item Value Reference Range Interpretation Comments Glucose Lvl (test code = Glucose Lvl) 109 70-99 [address]03-10 22:55:00 Test Item Value Reference Range Interpretation Comments BUN (test code = BUN) 8 7-22 [address]03-10 22:55:00 Test Item Value Reference Range Interpretation Comments Creatinine Lvl (test code = Creatinine 0.84 0.50-1.40 Lvl) [address]03-10 22:55:00 Test Item Value Reference Range Interpretation Comments Sodium Lvl (test code = Sodium Lvl) 140 135-145 [place] [address]-03-10 22:55:00 Test Item Value Reference Range Interpretation Comments Potassium Lvl (test code = Potassium 4.4 3.5-5.1 Lvl) [address]03-10 22:55:00 Test Item Value Reference Range Interpretation Comments Chloride Lvl (test code = Chloride Lvl) 107 95-109 [address]03-10 22:55:00 Test Item Value Reference Range Interpretation Comments CO2 (test code = CO2) 25 24-32 [address]03-10 22:55:00 Test Item Value Reference Range Interpretation Comments Calcium Lvl (test code = Calcium Lvl) 8.8 8.5-10.5 [address]03-10 22:55:00 Test Item Value Reference Range Interpretation Comments Total Protein (test code = Total 7.3 6.4-8.4 Protein) [address]03-10 22:55:00 Test Item Value Reference Range Interpretation Comments Albumin Lvl (test code = Albumin Lvl) 3.7 3.5-5.0 [address]03-10 22:55:00 Test Item Value Reference Range Interpretation Comments ALT (test code = ALT) 28 See_Comment [Auto mated message] The system which ge nerated this result transmit kenyon reference range : <=65. The reference range was not used to interpr et this result as robinson l/abnormal. [facility] [id number] 22:55:00 Test Item Value Reference Range Interpretation Comments AST (test code = AST) 52 See_Comment [Auto mated message] The system which ge nerated this result transmit kenyon reference range : <=37. The reference range was not used to interpr et this result as robinson l/abnormal. [facility] [id number] 22:55:00 Test Item Value Reference Range Interpretation Comments Alk Phos (test code = Alk Phos) 114 39-136 [facility] [id number] 22:55:00 Test Item Value Reference Range Interpretation Comments Bili Total (test code = Bili Total) 0.3 0.2-1.3 [facility] [id number] 22:55:00 Test Item Value Reference Range Interpretation Comments AGAP (test code = AGAP) 12.4 10.0-20.0 [facility] [id number] 22:55:00 Test Item Value Reference Range Interpretation Comments B/C Ratio (test code = B/C Ratio) 10 1 6-25 [facility]2020-03-10 22:55:00 Test Item Value Reference Range Interpretation Comments Globulin (test code = Globulin) 3.6 2.7-4.2 [facility]2020-03-10 22:55:00 Test Item Value Reference Range Interpretation Comments A/G Ratio (test code = A/G Ratio) 1.0 1 0.7-1.6 [facility] [id number] 22:55:00 Test Item Value Reference Range Interpretation Comments eGFR (test code = eGFR) 91 [facility] AND [id number] 22:55:00 Test Item Value Reference Range Interpretation Comments UA Color (test code = Light Yellow UA Color) *NA*(07/16/19 5:55 PM) [facility] AND [id number] 22:55:00 Test Item Value Reference Range Interpretation Comments UA Turbidity (test code Marked *ABN*(07/16/19 = UA Turbidity) 5:55 PM) [facility] AND [id number] 22:55:00 Test Item Value Reference Range Interpretation Comments UA Spec Grav (test code = UA Spec 1.004 1 Grav) [facility]ann[facility] AND [id number] 22:55:00 Test Item Value Reference Range Interpretation Comments UA pH (test code = UA pH) 8.0 1 5.0-8.0 [facility] AND [id number] 22:55:00 Test Item Value Reference Range Interpretation Comments UA Protein (test code Negative (07/16/19 5:55 = UA Protein) PM) [facility] AND [id number] 22:55:00 Test Item Value Reference Range Interpretation Comments UA Glucose (test code Negative *NA*(07/16/19 = UA Glucose) 5:55 PM) [facility] AND [id number] 22:55:00 Test Item Value Reference Range Interpretation Comments UA Ketones (test code Negative *NA*(07/16/19 = UA Ketones) 5:55 PM) [facility] AND [id number] 22:55:00 Test Item Value Reference Range Interpretation Comments UA Bili (test code = Negative *NA*(07/16/19 UA Bili) 5:55 PM) [facility] AND [id number] 22:55:00 Test Item Value Reference Range Interpretation Comments UA Blood (test code = Large *ABN*(07/16/19 UA Blood) 5:55 PM) [facility] AND [id number] 22:55:00 Test Item Value Reference Range Interpretation Comments UA Urobilinogen (test code = UA <=1.0 mg/dL 0.1-1.0 Urobilinogen) [facility] AND [id number] 22:55:00 Test Item Value Reference Range Interpretation Comments UA Nitrite (test code Negative (07/16/19 5:55 = UA Nitrite) PM) [facility] AND [id number] 22:55:00 Test Item Value Reference Range Interpretation Comments UA Leuk Est (test code Trace *ABN*(07/16/19 = UA Leuk Est) 5:55 PM) [facility] AND [id number] 22:55:00 Test Item Value Reference Range Interpretation Comments UA Sq Epi (test code = UA Sq Epi) Many /LPF [facility] AND [id number] 22:55:00 Test Item Value Reference Range Interpretation Comments UA WBC (test code = 4 See_Comment [Automa kenyon message] The UA WBC) system which ge nerated this result transmit kenyon reference range : <=5. The reference range was not used to interpr et this result as robinson l/abnormal. [facility] AND [id number] 22:55:00 Test Item Value Reference Range Interpretation Comments UA RBC (test code = 37 See_Comment [Automa kenyon message] The UA RBC) system which ge nerated this result transmit kenyon reference range : <=2. The reference range was not used to interpr et this result as robinson l/abnormal. [facility] [id number] 22:55:00 Test Item Value Reference Range Interpretation Comments UA Bacteria (test code = UA Many /HPF Bacteria) [facility] [id number] 22:55:00 Test Item Value Reference Range Interpretation Comments U Preg (test code = U Negative (07/16/19 5:55 Preg) PM) [facility] [id number] 22:55:00 Test Item Value Reference Range Interpretation Comments UA RBC (test code = 37 See_Comment [Automa kenyon message] The UA RBC) system which ge nerated this result transmit kenyon reference range : <=2. The reference range was not used to interpr et this result as robinson l/abnormal. [facility] AND [id number] 22:55:00 Test Item Value Reference Range Interpretation Comments UA Bacteria (test code = UA Many /HPF Bacteria) [facility] [id number] 22:55:00 Test Item Value Reference Range Interpretation Comments U Preg (test code = U Negative (07/16/19 5:55 Preg) PM) [facility] [id number] 22:55:00 Test Item Value Reference Range Interpretation Comments Glucose Lvl (test code = Glucose Lvl) 109 70-99 [facility] [id number] 22:55:00 Test Item Value Reference Range Interpretation Comments BUN (test code = BUN) 8 7-22 [facility] [employer] [id number] 22:55:00 Test Item Value Reference Range Interpretation Comments Creatinine Lvl (test code = Creatinine 0.84 0.50-1.40 Lvl) [facility] [employer] [id number] 22:55:00 Test Item Value Reference Range Interpretation Comments Sodium Lvl (test code = Sodium Lvl) 140 135-145 [facility] [employer] [id number] 22:55:00 Test Item Value Reference Range Interpretation Comments Potassium Lvl (test code = Potassium 4.4 3.5-5.1 Lvl) [facility] [employer] [id number] 22:55:00 Test Item Value Reference Range Interpretation Comments Chloride Lvl (test code = Chloride Lvl) 107 95-109 [facility] [employer] [id number] 22:55:00 Test Item Value Reference Range Interpretation Comments CO2 (test code = CO2) 25 24-32 [facility] [employer] [id number] 22:55:00 Test Item Value Reference Range Interpretation Comments Calcium Lvl (test code = Calcium Lvl) 8.8 8.5-10.5 [facility] [employer] [id number] 22:55:00 Test Item Value Reference Range Interpretation Comments Total Protein (test code = Total 7.3 6.4-8.4 Protein) [facility] [employer] [id number] 22:55:00 Test Item Value Reference Range Interpretation Comments Albumin Lvl (test code = Albumin Lvl) 3.7 3.5-5.0 [facility] [employer] [id number] 22:55:00 Test Item Value Reference Range Interpretation Comments ALT (test code = ALT) 28 See_Comment [Auto mated message] The system which ge nerated this result transmit kenyon reference range : <=65. The reference range was not used to interpr et this result as robinson l/abnormal. [facility] [employer] [id number] 22:55:00 Test Item Value Reference Range Interpretation Comments AST (test code = AST) 52 See_Comment [Auto mated message] The system which ge nerated this result transmit kenyon reference range : <=37. The reference range was not used to interpr et this result as robinson l/abnormal. [facility] [employer] [id number] 22:55:00 Test Item Value Reference Range Interpretation Comments Alk Phos (test code = Alk Phos) 114 39-136 [facility] [employer] [id number] 22:55:00 Test Item Value Reference Range Interpretation Comments Bili Total (test code = Bili Total) 0.3 0.2-1.3 [facility] [employer] [id number] 22:55:00 Test Item Value Reference Range Interpretation Comments AGAP (test code = AGAP) 12.4 10.0-20.0 [facility] [employer] [id number] 22:55:00 Test Item Value Reference Range Interpretation Comments B/C Ratio (test code = B/C Ratio) 10 1 6-25 [facility] [id number] 22:55:00 Test Item Value Reference Range Interpretation Comments Globulin (test code = Globulin) 3.6 2.7-4.2 [facility] [id number] 22:55:00 Test Item Value Reference Range Interpretation Comments A/G Ratio (test code = A/G Ratio) 1.0 1 0.7-1.6 [facility] [id number] 22:55:00 Test Item Value Reference Range Interpretation Comments eGFR (test code = eGFR) 91 [facility] AND [id number] 22:55:00 Test Item Value Reference Range Interpretation Comments UA Color (test code = Light Yellow UA Color) *NA*(07/16/19 5:55 PM) [facility] AND [id number] 22:55:00 Test Item Value Reference Range Interpretation Comments UA Turbidity (test code Marked *ABN*(07/16/19 = UA Turbidity) 5:55 PM) [facility] AND [id number] 22:55:00 Test Item Value Reference Range Interpretation Comments UA Spec Grav (test code = UA Spec 1.004 1 Grav) [facility] AND [id number] 22:55:00 Test Item Value Reference Range Interpretation Comments UA pH (test code = UA pH) 8.0 1 5.0-8.0 [facility] AND [id number] 22:55:00 Test Item Value Reference Range Interpretation Comments UA Protein (test code Negative (07/16/19 5:55 = UA Protein) PM) [facility] AND [id number] 22:55:00 Test Item Value Reference Range Interpretation Comments UA Glucose (test code Negative *NA*(07/16/19 = UA Glucose) 5:55 PM) [facility] AND [id number] 22:55:00 Test Item Value Reference Range Interpretation Comments UA Ketones (test code Negative *NA*(07/16/19 = UA Ketones) 5:55 PM) [facility] [id number] 22:55:00 Test Item Value Reference Range Interpretation Comments UA Bili (test code = Negative *NA*(07/16/19 UA Bili) 5:55 PM) [facility] [id number] 22:55:00 Test Item Value Reference Range Interpretation Comments UA Blood (test code = Large *ABN*(07/16/19 UA Blood) 5:55 PM) [facility] [id number] 22:55:00 Test Item Value Reference Range Interpretation Comments UA Urobilinogen (test code = UA <=1.0 mg/dL 0.1-1.0 Urobilinogen) [facility] [id number] 22:55:00 Test Item Value Reference Range Interpretation Comments UA Nitrite (test code Negative (07/16/19 5:55 = UA Nitrite) PM) [facility] [id number] 22:55:00 Test Item Value Reference Range Interpretation Comments UA Leuk Est (test code Trace *ABN*(07/16/19 = UA Leuk Est) 5:55 PM) [facility] [id number] 22:55:00 Test Item Value Reference Range Interpretation Comments UA Sq Epi (test code = UA Sq Epi) Many /LPF [facility] [id number] 22:55:00 Test Item Value Reference Range Interpretation Comments UA WBC (test code = 4 See_Comment [Automa kenyon message] The UA WBC) system which ge nerated this result transmit kenyon reference range : <=5. The reference range was not used to interpr et this result as robinson l/abnormal. [facility] [id number] 22:55:00 Test Item Value Reference Range Interpretation Comments UA RBC (test code = 37 See_Comment [Automa kenyon message] The UA RBC) system which ge nerated this result transmit kenyon reference range : <=2. The reference range was not used to interpr et this result as robinson l/abnormal. [facility] [id number] 22:55:00 Test Item Value Reference Range Interpretation Comments UA Bacteria (test code = UA Many /HPF Bacteria) [facility] [id number] 22:55:00 Test Item Value Reference Range Interpretation Comments U Preg (test code = U Negative (07/16/19 5:55 Preg) PM) [facility] [id number] 22:55:00 Test Item Value Reference Range Interpretation Comments Glucose Lvl (test code = Glucose Lvl) 109 70-99 [place] [id number] 22:55:00 Test Item Value Reference Range Interpretation Comments BUN (test code = BUN) 8 7-22 [place] [id number] 22:55:00 Test Item Value Reference Range Interpretation Comments Creatinine Lvl (test code = Creatinine 0.84 0.50-1.40 Lvl) [place] [address]-03-10 22:55:00 Test Item Value Reference Range Interpretation Comments Sodium Lvl (test code = Sodium Lvl) 140 135-145 [place] [address]-03-10 22:55:00 Test Item Value Reference Range Interpretation Comments Potassium Lvl (test code = Potassium 4.4 3.5-5.1 Lvl) [place] [address]-03-10 22:55:00 Test Item Value Reference Range Interpretation Comments Chloride Lvl (test code = Chloride Lvl) 107 95-109 [place] [address]-03-10 22:55:00 Test Item Value Reference Range Interpretation Comments CO2 (test code = CO2) 25 24-32 [place] [address]-03-10 22:55:00 Test Item Value Reference Range Interpretation Comments Calcium Lvl (test code = Calcium Lvl) 8.8 8.5-10.5 [place] [address]-03-10 22:55:00 Test Item Value Reference Range Interpretation Comments Total Protein (test code = Total 7.3 6.4-8.4 Protein) [place] [address]-03-10 22:55:00 Test Item Value Reference Range Interpretation Comments Albumin Lvl (test code = Albumin Lvl) 3.7 3.5-5.0 [place] [address]-03-10 22:55:00 Test Item Value Reference Range Interpretation Comments ALT (test code = ALT) 28 See_Comment [Auto mated message] The system which ge nerated this result transmit kenyon reference range : <=65. The reference range was not used to interpr et this result as robinson l/abnormal. [place] [address]-03-10 22:55:00 Test Item Value Reference Range Interpretation Comments AST (test code = AST) 52 See_Comment [Auto mated message] The system which ge nerated this result transmit kenyon reference range : <=37. The reference range was not used to interpr et this result as robinson l/abnormal. [facility] [id number] 22:55:00 Test Item Value Reference Range Interpretation Comments Alk Phos (test code = Alk Phos) 114 39-136 [facility] [id number] 22:55:00 Test Item Value Reference Range Interpretation Comments Bili Total (test code = Bili Total) 0.3 0.2-1.3 [facility] [id number] 22:55:00 Test Item Value Reference Range Interpretation Comments AGAP (test code = AGAP) 12.4 10.0-20.0 [facility] [id number] 22:55:00 Test Item Value Reference Range Interpretation Comments B/C Ratio (test code = B/C Ratio) 10 1 6-25 [facility] [id number] 22:55:00 Test Item Value Reference Range Interpretation Comments Globulin (test code = Globulin) 3.6 2.7-4.2 [facility] [id number] 22:55:00 Test Item Value Reference Range Interpretation Comments A/G Ratio (test code = A/G Ratio) 1.0 1 0.7-1.6 [facility] [id number] 22:55:00 Test Item Value Reference Range Interpretation Comments eGFR (test code = eGFR) 91 [facility] AND [id number] 22:55:00 Test Item Value Reference Range Interpretation Comments UA Color (test code = Light Yellow UA Color) *NA*(07/16/19 5:55 PM) [facility] [id number] 22:55:00 Test Item Value Reference Range Interpretation Comments UA Turbidity (test code Marked *ABN*(07/16/19 = UA Turbidity) 5:55 PM) [facility] [id number] 22:55:00 Test Item Value Reference Range Interpretation Comments UA Spec Grav (test code = UA Spec 1.004 1 Grav) [facility] [id number] 22:55:00 Test Item Value Reference Range Interpretation Comments UA pH (test code = UA pH) 8.0 1 5.0-8.0 [facility] AND [id number] 22:55:00 Test Item Value Reference Range Interpretation Comments UA Protein (test code Negative (07/16/19 5:55 = UA Protein) PM) [facility] [id number] 22:55:00 Test Item Value Reference Range Interpretation Comments UA Glucose (test code Negative *NA*(07/16/19 = UA Glucose) 5:55 PM) [facility] [id number] 22:55:00 Test Item Value Reference Range Interpretation Comments UA Ketones (test code Negative *NA*(07/16/19 = UA Ketones) 5:55 PM) [facility] [id number] 22:55:00 Test Item Value Reference Range Interpretation Comments UA Bili (test code = Negative *NA*(07/16/19 UA Bili) 5:55 PM) [facility] AND [id number] 22:55:00 Test Item Value Reference Range Interpretation Comments UA Blood (test code = Large *ABN*(07/16/19 UA Blood) 5:55 PM) [facility] AND [id number] 22:55:00 Test Item Value Reference Range Interpretation Comments UA Urobilinogen (test code = UA <=1.0 mg/dL 0.1-1.0 Urobilinogen) [facility] AND [id number] 22:55:00 Test Item Value Reference Range Interpretation Comments UA Nitrite (test code Negative (07/16/19 5:55 = UA Nitrite) PM) [facility] AND [id number] 22:55:00 Test Item Value Reference Range Interpretation Comments UA Leuk Est (test code Trace *ABN*(07/16/19 = UA Leuk Est) 5:55 PM) [facility] AND [id number] 22:55:00 Test Item Value Reference Range Interpretation Comments UA Sq Epi (test code = UA Sq Epi) Many /LPF [facility] AND [id number] 22:55:00 Test Item Value Reference Range Interpretation Comments UA WBC (test code = 4 See_Comment [Automa kenyon message] The UA WBC) system which ge nerated this result transmit kenyon reference range : <=5. The reference range was not used to interpr et this result as robinson l/abnormal. [employer]2016-10-14 03:49:00 Test Item Value Reference Range Interpretation Comments CK MB Index (test no gt See_Comment [Automate d message] The code = CK MB Index) system w Subtext generated this result transmit kenyon reference range : <=2.5. The reference range was not used to interpr et this result as robinson l/abnormal. [employer] [id number] 03:49:00 Test Item Value Reference Range Interpretation Comments Troponin-I (test code no gt See_Comment [Auto mated message] The = Troponin-I) system which g enerated this result transmit kenyon reference range : <=0.40. The reference r yuval was not used to interpr et this result as robinson l/abnormal. [employer]2016-10-14 03:49:00 Test Item Value Reference Range Interpretation Comments CK MB (test code = CK MB) no gt 0.5-3.6 [facility] [employer]2016-10-14 03:49:00 Test Item Value Reference Range Interpretation Comments Total CK (test code = Total CK) 51 12-191 [facility] [employer]2016-10-14 03:49:00 Test Item Value Reference Range Interpretation Comments CK MB Index (test no gt See_Comment [Automate d message] The code = CK MB Index) system w Subtext generated this result transmit kenyon reference range : <=2.5. The reference range was not used to interpr et this result as robinson l/abnormal. [employer]2016-10-14 03:49:00 Test Item Value Reference Range Interpretation Comments Troponin-I (test code no gt See_Comment [Auto mated message] The = Troponin-I) system which g enerated this result transmit kenyon reference range : <=0.40. The reference r yuval was not used to interpr et this result as robinson l/abnormal. [employer]2016-10-14 03:49:00 Test Item Value Reference Range Interpretation Comments CK MB (test code = CK MB) no gt 0.5-3.6 [facility] [employer] [id number] 03:49:00 Test Item Value Reference Range Interpretation Comments Total CK (test code = Total CK) 51 12-191 [facility] [employer] [id number] 03:49:00 Test Item Value Reference Range Interpretation Comments CK MB Index (test no gt See_Comment [Automate d message] The code = CK MB Index) system w Subtext generated this result transmit kenyon reference range : <=2.5. The reference range was not used to interpr et this result as robinson l/abnormal. [facility] [employer]2016-10-14 03:49:00 Test Item Value Reference Range Interpretation Comments Troponin-I (test code no gt See_Comment [Auto mated message] The = Troponin-I) system which g enerated this result transmit kenyon reference range : <=0.40. The reference r yuval was not used to interpr et this result as robinson l/abnormal. [employer]2016-10-14 03:49:00 Test Item Value Reference Range Interpretation Comments CK MB (test code = CK MB) no gt 0.5-3.6 [facility] [employer]2016-10-14 03:49:00 Test Item Value Reference Range Interpretation Comments Total CK (test code = Total CK) 51 191 [facility] [employer]2016-10-14 03:49:00 Test Item Value Reference Range Interpretation Comments CK MB Index (test no gt See_Comment [Automate d message] The code = CK MB Index) system w Subtext generated this result transmit kenyon reference range : <=2.5. The reference range was not used to interpr et this result as robinson l/abnormal. [employer]2016-10-14 03:49:00 Test Item Value Reference Range Interpretation Comments Troponin-I (test code no gt See_Comment [Auto mated message] The = Troponin-I) system which g enerated this result transmit kenyon reference range : <=0.40. The reference r yuval was not used to interpr et this result as robinson l/abnormal. [employer]2016-10-14 03:49:00 Test Item Value Reference Range Interpretation Comments CK MB (test code = CK MB) no gt 0.5-3.6 [employer] [id number] 03:49:00 Test Item Value Reference Range Interpretation Comments Total CK (test code = Total CK) 51 191 [facility] [employer]inCARDIAC [id number] 03:49:00 Test Item Value Reference Range Interpretation Comments CK MB Index (test no gt See_Comment [Automate d message] The code = CK MB Index) system w Subtext generated this result transmit kenyon reference range : <=2.5. The reference range was not used to interpr et this result as robinson l/abnormal. [employer] [id number] 03:49:00 Test Item Value Reference Range Interpretation Comments Troponin-I (test code no gt See_Comment [Auto mated message] The = Troponin-I) system which g enerated this result transmit kenyon reference range : <=0.40. The reference r yuval was not used to interpr et this result as robinson l/abnormal. [employer]2016-10-14 03:49:00 Test Item Value Reference Range Interpretation Comments CK MB (test code = CK MB) no gt 0.5-3.6 [facility] [employer] [id number] 03:49:00 Test Item Value Reference Range Interpretation Comments Total CK (test code = Total CK) 51 191 [facility] [employer] [id number] 01:45:00 Test Item Value Reference Range Interpretation Comments CK MB Index (test no gt See_Comment [Automate d message] The code = CK MB Index) system [employer] generated this result transmit kenyon reference range : <=2.5. The reference range was not used to interpr et this result as robinson l/abnormal. [employer] [id number] 01:45:00 Test Item Value Reference Range Interpretation Comments Total CK (test code = Total CK) 59 12-191 [facility] [employer] [id number] 01:45:00 Test Item Value Reference Range Interpretation Comments CK MB (test code = CK MB) no gt 0.5-3.6 [facility]CARCardioKinet[employer]AC [id number] 01:45:00 Test Item Value Reference Range Interpretation Comments Troponin-I (test code no gt See_Comment [Auto mated message] The = Troponin-I) system which g enerated this result transmit kenyon reference range : <=0.40. The reference r yuval was not used to interpr et this result as robinson l/abnormal. [facility]2016-10-14 01:45:00 Test Item Value Reference Range Interpretation Comments eGFR (test code = eGFR) 107 [facility]2016-10-14 01:45:00 Test Item Value Reference Range Interpretation Comments A/G Ratio (test code = A/G Ratio) 1.1 0.7-1.6 [facility]2016-10-14 01:45:00 Test Item Value Reference Range Interpretation Comments Globulin (test code = Globulin) 3.2 2.7-4.2 [facility]2016-10-14 01:45:00 Test Item Value Reference Range Interpretation Comments B/C Ratio (test code = B/C Ratio) 8 6-25 [facility]2016-10-14 01:45:00 Test Item Value Reference Range Interpretation Comments Sodium Lvl (test code = Sodium Lvl) 139 135-145 [facility]2016-10-14 01:45:00 Test Item Value Reference Range Interpretation Comments Creatinine Lvl (test code = Creatinine 0.75 0.50-1.40 Lvl) [facility]2016-10-14 01:45:00 Test Item Value Reference Range Interpretation Comments BUN (test code = BUN) 6 7-22 [facility]2016-10-14 01:45:00 Test Item Value Reference Range Interpretation Comments Glucose Lvl (test code = Glucose Lvl) 82 70-99 [facility]2016-10-14 01:45:00 Test Item Value Reference Range Interpretation Comments CO2 (test code = CO2) 26 24-32 [facility]2016-10-14 01:45:00 Test Item Value Reference Range Interpretation Comments Chloride Lvl (test code = Chloride Lvl) 104 95-109 [facility]2016-10-14 01:45:00 Test Item Value Reference Range Interpretation Comments Potassium Lvl (test code = Potassium 3.6 3.5-5.1 Lvl) [facility]2016-10-14 01:45:00 Test Item Value Reference Range Interpretation Comments Calcium Lvl (test code = Calcium Lvl) 8.0 8.5-10.5 [facility]2016-10-14 01:45:00 Test Item Value Reference Range Interpretation Comments ALT (test code = ALT) 41 See_Comment [Auto mated message] The system which ge nerated this result transmit kenyon reference range : <=65. The reference range was not used to interpr et this result as robinson l/abnormal. [place] [id number] 01:45:00 Test Item Value Reference Range Interpretation Comments Albumin Lvl (test code = Albumin Lvl) 3.6 3.5-5.0 [facility]2016-10-14 01:45:00 Test Item Value Reference Range Interpretation Comments Total Protein (test code = Total 6.8 6.4-8.4 Protein) [facility]2016-10-14 01:45:00 Test Item Value Reference Range Interpretation Comments Alk Phos (test code = Alk Phos) 85 39-136 [facility]2016-10-14 01:45:00 Test Item Value Reference Range Interpretation Comments AST (test code = AST) 34 See_Comment [Auto mated message] The system which ge nerated this result transmit kenyon reference range : <=37. The reference range was not used to interpr et this result as robinson l/abnormal. [facility]2016-10-14 01:45:00 Test Item Value Reference Range Interpretation Comments AGAP (test code = AGAP) 12.6 10.0-20.0 [facility]2016-10-14 01:45:00 Test Item Value Reference Range Interpretation Comments Bili Total (test code = Bili Total) 0.4 0.2-1.3 [place] [address]2016-10-14 01:45:00 Test Item Value Reference Range Interpretation Comments S Preg (test code = S Negative *NA*(02/18/16 Preg) 8:45 PM) [id number] 01:45:00 Test Item Value Reference Range Interpretation Comments Basophils # (test code 0.1 See_Comment [Aut omated message] The = Basophils #) system which generated this result tra nsmitted reference range : <=0.2. The reference r yuval was not used to int erpret this result as normal/abnormal . [id number] 01:45:00 Test Item Value Reference Range Interpretation Comments Eosinophils # (test code 0.1 See_Comment [A utomated message] The = Eosinophils #) system whic h generated this result tra nsmitted reference range : <=0.5. The reference r yuval was not used to int erpret this result as normal/abnormal . [id number] 01:45:00 Test Item Value Reference Range Interpretation Comments Segs (test code = Segs) 41.6 45.0-75.0 [id number] 01:45:00 Test Item Value Reference Range Interpretation Comments Eosinophils (test code = 1.5 See_Comment [A utomated message] The Eosinophils) system which ge nerated this result tra nsmitted reference range : <=4.0. The reference r yuval was not used to int erpret this result as normal/abnormal . [id number] 01:45:00 Test Item Value Reference Range Interpretation Comments Lymphocytes (test code = Lymphocytes) 45.0 20.0-40.0 [facility] [id number] 01:45:00 Test Item Value Reference Range Interpretation Comments Monocytes (test code = Monocytes) 10.9 2.0-12.0 [facility] [id number] 01:45:00 Test Item Value Reference Range Interpretation Comments Monocytes # (test code 0.7 See_Comment [Aut omated message] The = Monocytes #) system which generated this result tra nsmitted reference range : <=0.8. The reference r yuval was not used to int erpret this result as normal/abnormal . [facility]hamShzdtfjRLUJUABEEB6379-03-78 01:45:00 Test Item Value Reference Range Interpretation Comments Lymphocytes # (test code = Lymphocytes 3.1 1.0-5.5 #) [facility]hamYusqldjQKVGLMSDTY7654-39-86 01:45:00 Test Item Value Reference Range Interpretation Comments Segs-Bands # (test code = Segs-Bands #) 2.8 1.5-8.1 [facility]hamEcsvnimOTLSWCZNID4594-99-43 01:45:00 Test Item Value Reference Range Interpretation Comments Basophils (test code = 1.0 See_Comment [Aut omated message] The Basophils) system which ge nerated this result tra nsmitted reference range : <=1.0. The reference r yuval was not used to int erpret this result as normal/abnormal . [facility]PkndwbwBBJVPVGBOX9194-48-61 01:45:00 Test Item Value Reference Range Interpretation Comments MCV (test code = MCV) 89.3 80.0-98.0 [facility] HealthRviktvtBQOJZWIMVR3097-55-64 01:45:00 Test Item Value Reference Range Interpretation Comments Hct (test code = Hct) 42.1 36.0-48.0 [facility] HealthXvqpdgzUYNGTZBBJV6043-49-92 01:45:00 Test Item Value Reference Range Interpretation Comments Hgb (test code = Hgb) 14.5 12.0-16.0 [facility] HealthYsakfvyFLCKWIOTXH4255-16-03 01:45:00 Test Item Value Reference Range Interpretation Comments RBC (test code = RBC) 4.72 4.20-5.40 [facility] HealthLgrkmdxPOMDMMWLTQ3137-34-39 01:45:00 Test Item Value Reference Range Interpretation Comments MCH (test code = MCH) 30.7 pg 27.0-31.0 [facility] HealthLsxmnxhEKXZAFBFAW4359-33-50 01:45:00 Test Item Value Reference Range Interpretation Comments WBC (test code = WBC) 6.8 3.7-10.4 [facility] HealthNpggbweONBFBVNWCX5284-22-60 01:45:00 Test Item Value Reference Range Interpretation Comments Platelet (test code = Platelet) 308 133-450 [facility] HealthInmkoofIQMBSUWMPW4047-10-08 01:45:00 Test Item Value Reference Range Interpretation Comments RDW (test code = RDW) 13.1 11.5-14.5 [facility]hamGlzdxpjYLQXRCKLHI6029-10-31 01:45:00 Test Item Value Reference Range Interpretation Comments MPV (test code = MPV) 8.6 7.4-10.4 [facility] HealthWzdkfqxKIYYRRZMMF4480-95-12 01:45:00 Test Item Value Reference Range Interpretation Comments MCHC (test code = MCHC) 34.4 32.0-36.0 [facility] HealthYkpisrjJDDHEIVEGW7796-68-51 01:45:00 Test Item Value Reference Range Interpretation Comments D-Dimer (test code = D-Dimer) no gt [facility]annCARD[facility]AC [id number] 01:45:00 Test Item Value Reference Range Interpretation Comments CK MB Index (test no gt See_Comment [Automate d message] The code = CK MB Index) [facility] result transmit kenyon reference range : <=2.5. The reference range was not used to interpr et this result as robinson l/abnormal. [facility] [employer] RSUVOXN2287-11-47 01:45:00 Test Item Value Reference Range Interpretation Comments Total CK (test code = Total CK) 59 12-191 [facility] HospitalAnvil SemiconductorsAC [id number] 01:45:00 Test Item Value Reference Range Interpretation Comments CK MB (test code = CK MB) no gt 0.5-3.6 [facility] [employer]knowledgeannCARCardioKinet[employer]AC [id number] 01:45:00 Test Item Value Reference Range Interpretation Comments Troponin-I (test code no gt See_Comment [Auto mated message] The = Troponin-I) system which g enerated this result transmit kenyon reference range : <=0.40. The reference r yuval was not used to interpr et this result as robinson l/abnormal. [facility] [employer]2016-10-14 01:45:00 Test Item Value Reference Range Interpretation Comments eGFR (test code = eGFR) 107 [facility] [employer] [id number] 01:45:00 Test Item Value Reference Range Interpretation Comments A/G Ratio (test code = A/G Ratio) 1.1 0.7-1.6 [facility] [employer] [id number] 01:45:00 Test Item Value Reference Range Interpretation Comments Globulin (test code = Globulin) 3.2 2.7-4.2 [facility] [employer]2016-10-14 01:45:00 Test Item Value Reference Range Interpretation Comments B/C Ratio (test code = B/C Ratio) 8 6-25 [facility] [employer]2016-10-14 01:45:00 Test Item Value Reference Range Interpretation Comments Sodium Lvl (test code = Sodium Lvl) 139 135-145 [facility] [employer]2016-10-14 01:45:00 Test Item Value Reference Range Interpretation Comments Creatinine Lvl (test code = Creatinine 0.75 0.50-1.40 Lvl) [facility] [employer] [id number] 01:45:00 Test Item Value Reference Range Interpretation Comments BUN (test code = BUN) 6 7-22 [facility] [employer] [id number] 01:45:00 Test Item Value Reference Range Interpretation Comments Glucose Lvl (test code = Glucose Lvl) 82 70-99 [facility]2016-10-14 01:45:00 Test Item Value Reference Range Interpretation Comments CO2 (test code = CO2) 26 24-32 [facility]2016-10-14 01:45:00 Test Item Value Reference Range Interpretation Comments Chloride Lvl (test code = Chloride Lvl) 104 95-109 [facility]2016-10-14 01:45:00 Test Item Value Reference Range Interpretation Comments Potassium Lvl (test code = Potassium 3.6 3.5-5.1 Lvl) [facility]2016-10-14 01:45:00 Test Item Value Reference Range Interpretation Comments Calcium Lvl (test code = Calcium Lvl) 8.0 8.5-10.5 [facility]2016-10-14 01:45:00 Test Item Value Reference Range Interpretation Comments ALT (test code = ALT) 41 See_Comment [Auto mated message] The system which ge nerated this result transmit kenyon reference range : <=65. The reference range was not used to interpr et this result as robinson l/abnormal. [facility]2016-10-14 01:45:00 Test Item Value Reference Range Interpretation Comments Albumin Lvl (test code = Albumin Lvl) 3.6 3.5-5.0 [facility]2016-10-14 01:45:00 Test Item Value Reference Range Interpretation Comments Total Protein (test code = Total 6.8 6.4-8.4 Protein) [facility]2016-10-14 01:45:00 Test Item Value Reference Range Interpretation Comments Alk Phos (test code = Alk Phos) 85 39-136 [facility]2016-10-14 01:45:00 Test Item Value Reference Range Interpretation Comments AST (test code = AST) 34 See_Comment [Auto mated message] The system which ge nerated this result transmit kenyon reference range : <=37. The reference range was not used to interpr et this result as robinson l/abnormal. [facility]2016-10-14 01:45:00 Test Item Value Reference Range Interpretation Comments AGAP (test code = AGAP) 12.6 10.0-20.0 [facility]2016-10-14 01:45:00 Test Item Value Reference Range Interpretation Comments Bili Total (test code = Bili Total) 0.4 0.2-1.3 [place] [address]2016-10-14 01:45:00 Test Item Value Reference Range Interpretation Comments S Preg (test code = S Negative *NA*(02/18/16 Preg) 8:45 PM) [facility]hamYulkxsqYHDIMBOZDI3043-55-52 01:45:00 Test Item Value Reference Range Interpretation Comments Basophils # (test code 0.1 See_Comment [Aut omated message] The = Basophils #) system which generated this result tra nsmitted reference range : <=0.2. The reference r yuval was not used to int erpret this result as normal/abnormal . [facility]hamIfiqwjvEYTTAOELXX5224-46-66 01:45:00 Test Item Value Reference Range Interpretation Comments Eosinophils # (test code 0.1 See_Comment [A utomated message] The = Eosinophils #) system wh h generated this result tra nsmitted reference range : <=0.5. The reference r yuval was not used to int erpret this result as normal/abnormal . [facility] BrenhamOmsyoncVWDBQYIFFR1655-63-02 01:45:00 Test Item Value Reference Range Interpretation Comments Segs (test code = Segs) 41.6 45.0-75.0 [facility] BrenhamJjaxdipYRRJTBOGMR7968-40-16 01:45:00 Test Item Value Reference Range Interpretation Comments Eosinophils (test code = 1.5 See_Comment [A utomated message] The Eosinophils) system which ge nerated this result tra nsmitted reference range : <=4.0. The reference r yuval was not used to int erpret this result as normal/abnormal . [facility]hamLluuxkrUGZITMXZLQ5853-13-71 01:45:00 Test Item Value Reference Range Interpretation Comments Lymphocytes (test code = Lymphocytes) 45.0 20.0-40.0 [facility]hamEsbatskUNUJTUYRTZ7219-10-86 01:45:00 Test Item Value Reference Range Interpretation Comments Monocytes (test code = Monocytes) 10.9 2.0-12.0 [facility] BrenhamGzokxjkFJPXOJQFYW0435-58-77 01:45:00 Test Item Value Reference Range Interpretation Comments Monocytes # (test code 0.7 See_Comment [Aut omated message] The = Monocytes #) system which generated this result tra nsmitted reference range : <=0.8. The reference r yuval was not used to int erpret this result as normal/abnormal . [facility]hamEzarvhyTWXXLOBRSK1436-50-99 01:45:00 Test Item Value Reference Range Interpretation Comments Lymphocytes # (test code = Lymphocytes 3.1 1.0-5.5 #) [facility]hamCeqngzrWSHDWAEMRX8606-81-21 01:45:00 Test Item Value Reference Range Interpretation Comments Segs-Bands # (test code = Segs-Bands #) 2.8 1.5-8.1 [facility] BrenhamZcxkbffMCDYKKBVFF1303-48-79 01:45:00 Test Item Value Reference Range Interpretation Comments Basophils (test code = 1.0 See_Comment [Aut omated message] The Basophils) system which ge nerated this result tra nsmitted reference range : <=1.0. The reference r yuval was not used to int erpret this result as normal/abnormal . [facility]hamLesgqzdUEEGKRCMCL9223-72-90 01:45:00 Test Item Value Reference Range Interpretation Comments MCV (test code = MCV) 89.3 80.0-98.0 [facility] BrenhamFpzakvsCSQCYWCPKS9828-69-16 01:45:00 Test Item Value Reference Range Interpretation Comments Hct (test code = Hct) 42.1 36.0-48.0 [facility] BrenhamTypmmehAJQDNDFUPS9006-37-33 01:45:00 Test Item Value Reference Range Interpretation Comments Hgb (test code = Hgb) 14.5 12.0-16.0 [facility] BrenhamDfstedhXNSLYWCDGU2145-99-97 01:45:00 Test Item Value Reference Range Interpretation Comments RBC (test code = RBC) 4.72 4.20-5.40 [facility] BrenhamVbydnvyVLECZDCHQW6162-19-71 01:45:00 Test Item Value Reference Range Interpretation Comments MCH (test code = MCH) 30.7 pg 27.0-31.0 [facility]hamUszmwmhTRXUFZGZCP4408-92-48 01:45:00 Test Item Value Reference Range Interpretation Comments WBC (test code = WBC) 6.8 3.7-10.4 [facility] BrenhamUtxsegdMURNXBWAUS3855-25-52 01:45:00 Test Item Value Reference Range Interpretation Comments Platelet (test code = Platelet) 308 133-450 [facility] BrenhamRsfmfobTSXBGBFFMK6498-78-78 01:45:00 Test Item Value Reference Range Interpretation Comments RDW (test code = RDW) 13.1 11.5-14.5 [facility] AitbzrjUSBOVYWELO2161-16-64 01:45:00 Test Item Value Reference Range Interpretation Comments MPV (test code = MPV) 8.6 7.4-10.4 [facility] RlkkrauOCUMJCRVRR6903-91-89 01:45:00 Test Item Value Reference Range Interpretation Comments MCHC (test code = MCHC) 34.4 32.0-36.0 [facility] HrkdixiMQBOEEUBNG9520-09-22 01:45:00 Test Item Value Reference Range Interpretation Comments D-Dimer (test code = D-Dimer) no gt [facility]CARDIAC [id number] 01:45:00 Test Item Value Reference Range Interpretation Comments CK MB Index (test no gt See_Comment [Automate d message] The code = CK MB Index) [facility] result transmit kenyon reference range : <=2.5. The reference range was not used to interpr et this result as robinson l/abnormal. [facility] [employer]knowledgeannCARDIAC KQCQJUI3956-68-38 01:45:00 Test Item Value Reference Range Interpretation Comments Total CK (test code = Total CK) 59 12-191 [facility]annCARDIAC [id number] 01:45:00 Test Item Value Reference Range Interpretation Comments CK MB (test code = CK MB) no gt 0.5-3.6 [facility]annCARD[facility]AC [id number] 01:45:00 Test Item Value Reference Range Interpretation Comments Troponin-I (test code no gt See_Comment [Auto mated message] The = Troponin-I) system which g enerated this result transmit kenyon reference range : <=0.40. The reference r yuval was not used to interpr et this result as robinson l/abnormal. [facility] [employer] [id number] 01:45:00 Test Item Value Reference Range Interpretation Comments eGFR (test code = eGFR) 107 [facility] [employer] [id number] 01:45:00 Test Item Value Reference Range Interpretation Comments A/G Ratio (test code = A/G Ratio) 1.1 0.7-1.6 [facility] [employer] [id number] 01:45:00 Test Item Value Reference Range Interpretation Comments Globulin (test code = Globulin) 3.2 2.7-4.2 [facility]2016-10-14 01:45:00 Test Item Value Reference Range Interpretation Comments B/C Ratio (test code = B/C Ratio) 8 6-25 [facility]2016-10-14 01:45:00 Test Item Value Reference Range Interpretation Comments Sodium Lvl (test code = Sodium Lvl) 139 135-145 [facility]2016-10-14 01:45:00 Test Item Value Reference Range Interpretation Comments Creatinine Lvl (test code = Creatinine 0.75 0.50-1.40 Lvl) [facility]2016-10-14 01:45:00 Test Item Value Reference Range Interpretation Comments BUN (test code = BUN) 6 7-22 [facility]2016-10-14 01:45:00 Test Item Value Reference Range Interpretation Comments Glucose Lvl (test code = Glucose Lvl) 82 70-99 [facility]2016-10-14 01:45:00 Test Item Value Reference Range Interpretation Comments CO2 (test code = CO2) 26 24-32 [facility]2016-10-14 01:45:00 Test Item Value Reference Range Interpretation Comments Chloride Lvl (test code = Chloride Lvl) 104 95-109 [facility]2016-10-14 01:45:00 Test Item Value Reference Range Interpretation Comments Potassium Lvl (test code = Potassium 3.6 3.5-5.1 Lvl) [facility]2016-10-14 01:45:00 Test Item Value Reference Range Interpretation Comments Calcium Lvl (test code = Calcium Lvl) 8.0 8.5-10.5 [facility]2016-10-14 01:45:00 Test Item Value Reference Range Interpretation Comments ALT (test code = ALT) 41 See_Comment [Auto mated message] The system which ge nerated this result transmit kenyon reference range : <=65. The reference range was not used to interpr et this result as robinson l/abnormal. [facility]2016-10-14 01:45:00 Test Item Value Reference Range Interpretation Comments Albumin Lvl (test code = Albumin Lvl) 3.6 3.5-5.0 [facility]2016-10-14 01:45:00 Test Item Value Reference Range Interpretation Comments Total Protein (test code = Total 6.8 6.4-8.4 Protein) [facility]2016-10-14 01:45:00 Test Item Value Reference Range Interpretation Comments Alk Phos (test code = Alk Phos) 85 39-136 [facility]2016-10-14 01:45:00 Test Item Value Reference Range Interpretation Comments AST (test code = AST) 34 See_Comment [Auto mated message] The system which ge nerated this result transmit kenyon reference range : <=37. The reference range was not used to interpr et this result as robinson l/abnormal. [facility]2016-10-14 01:45:00 Test Item Value Reference Range Interpretation Comments AGAP (test code = AGAP) 12.6 10.0-20.0 [facility]2016-10-14 01:45:00 Test Item Value Reference Range Interpretation Comments Bili Total (test code = Bili Total) 0.4 0.2-1.3 [place] [address]2016-10-14 01:45:00 Test Item Value Reference Range Interpretation Comments S Preg (test code = S Negative *NA*(02/18/16 Preg) 8:45 PM) [facility]hamKiicrkmDENCPTBVER3833-83-68 01:45:00 Test Item Value Reference Range Interpretation Comments Basophils # (test code 0.1 See_Comment [Aut omated message] The = Basophils #) system which generated this result tra nsmitted reference range : <=0.2. The reference r yuval was not used to int erpret this result as normal/abnormal . [facility] BrenhamGnbylngASAFNPQYLP6472-10-97 01:45:00 Test Item Value Reference Range Interpretation Comments Eosinophils # (test code 0.1 See_Comment [A utomated message] The = Eosinophils #) system whic h generated this result tra nsmitted reference range : <=0.5. The reference r yuval was not used to int erpret this result as normal/abnormal . [facility]hamVhfjsjuQWHPKLMNYN4126-45-48 01:45:00 Test Item Value Reference Range Interpretation Comments Segs (test code = Segs) 41.6 45.0-75.0 [facility] BrenhamZrrlzfcOFHTGALINH3367-33-12 01:45:00 Test Item Value Reference Range Interpretation Comments Eosinophils (test code = 1.5 See_Comment [A utomated message] The Eosinophils) system which ge nerated this result tra nsmitted reference range : <=4.0. The reference r yuval was not used to int erpret this result as normal/abnormal . [facility]hamKudtjvbQKVSCLFATS9483-13-04 01:45:00 Test Item Value Reference Range Interpretation Comments Lymphocytes (test code = Lymphocytes) 45.0 20.0-40.0 [facility] BrenhamQepjvesSFDNJWIWUI8364-94-20 01:45:00 Test Item Value Reference Range Interpretation Comments Monocytes (test code = Monocytes) 10.9 2.0-12.0 [facility] BrenhamBdkzodzAZLGFAPUTV2892-28-50 01:45:00 Test Item Value Reference Range Interpretation Comments Monocytes # (test code 0.7 See_Comment [Aut omated message] The = Monocytes #) system which generated this result tra nsmitted reference range : <=0.8. The reference r yuval was not used to int erpret this result as normal/abnormal . [facility] BrenhamFgehrigLRHDVIPUDT5768-49-53 01:45:00 Test Item Value Reference Range Interpretation Comments Lymphocytes # (test code = Lymphocytes 3.1 1.0-5.5 #) [facility] BrenhamWxohpllFQENYDFHIN7189-47-44 01:45:00 Test Item Value Reference Range Interpretation Comments Segs-Bands # (test code = Segs-Bands #) 2.8 1.5-8.1 [facility] BrenhamKtkjchbPHLONYRCUO0623-13-08 01:45:00 Test Item Value Reference Range Interpretation Comments Basophils (test code = 1.0 See_Comment [Aut omated message] The Basophils) system which ge nerated this result tra nsmitted reference range : <=1.0. The reference r yuval was not used to int erpret this result as normal/abnormal . [facility] BrenhamIuzirypSHLYOVZBFH6315-35-71 01:45:00 Test Item Value Reference Range Interpretation Comments MCV (test code = MCV) 89.3 80.0-98.0 [facility] BrenhamBvbeunpMZALUVLJOZ6000-99-74 01:45:00 Test Item Value Reference Range Interpretation Comments Hct (test code = Hct) 42.1 36.0-48.0 [facility]hamMqzjoftVTGCOQLAHO0583-27-09 01:45:00 Test Item Value Reference Range Interpretation Comments Hgb (test code = Hgb) 14.5 12.0-16.0 [facility] HealthRojqcltAPZBCFQIQN9318-88-72 01:45:00 Test Item Value Reference Range Interpretation Comments RBC (test code = RBC) 4.72 4.20-5.40 [facility] HealthMcvdclbONUXIZVXUH3010-21-36 01:45:00 Test Item Value Reference Range Interpretation Comments MCH (test code = MCH) 30.7 pg 27.0-31.0 [facility] HealthSckxahtFHXQWDASVZ3828-92-03 01:45:00 Test Item Value Reference Range Interpretation Comments WBC (test code = WBC) 6.8 3.7-10.4 [facility] HealthVsihtakSFUCUFNKYR8855-20-84 01:45:00 Test Item Value Reference Range Interpretation Comments Platelet (test code = Platelet) 308 133-450 [facility] HealthGooisaoMRWIVDJHLS6544-48-48 01:45:00 Test Item Value Reference Range Interpretation Comments RDW (test code = RDW) 13.1 11.5-14.5 [facility] HealthShfzlexBEFBXAGKIK2997-89-15 01:45:00 Test Item Value Reference Range Interpretation Comments MPV (test code = MPV) 8.6 7.4-10.4 [facility] HealthVvzcuerEFDJRIKIYF7097-06-20 01:45:00 Test Item Value Reference Range Interpretation Comments MCHC (test code = MCHC) 34.4 32.0-36.0 [facility] HealthZawndwkPMCYYMYKUF7425-74-57 01:45:00 Test Item Value Reference Range Interpretation Comments D-Dimer (test code = D-Dimer) no gt [facility] HospitalfluIT BiosystemsCARDIAC [id number] 01:45:00 Test Item Value Reference Range Interpretation Comments CK MB Index (test no gt See_Comment [Automate d message] The code = CK MB Index) system w [facility] generated this result transmit kenyon reference range : <=2.5. The reference range was not used to interpr et this result as robinson l/abnormal. [facility]villeCARD[facility] JELLBFE5395-16-15 01:45:00 Test Item Value Reference Range Interpretation Comments Total CK (test code = Total CK) 59 12-191 [facility]villeCARDIAC [id number] 01:45:00 Test Item Value Reference Range Interpretation Comments CK MB (test code = CK MB) no gt 0.5-3.6 [facility] GreenvilleCARDIAC IIIHCTJ9428-60-01 01:45:00 Test Item Value Reference Range Interpretation Comments Troponin-I (test code no gt See_Comment [Auto mated message] The = Troponin-I) system which g enerated this result transmit kenyon reference range : <=0.40. The reference r yuval was not used to interpr et this result as robinson l/abnormal. [facility] HospitalEssential Viewing [id number] 01:45:00 Test Item Value Reference Range Interpretation Comments eGFR (test code = eGFR) 107 [facility]2016-10-14 01:45:00 Test Item Value Reference Range Interpretation Comments A/G Ratio (test code = A/G Ratio) 1.1 0.7-1.6 [facility]2016-10-14 01:45:00 Test Item Value Reference Range Interpretation Comments Globulin (test code = Globulin) 3.2 2.7-4.2 [facility] GreenvilleTeabox [id number] 01:45:00 Test Item Value Reference Range Interpretation Comments B/C Ratio (test code = B/C Ratio) 8 6-25 [facility] GreenvilleTeab[facility] [id number] 01:45:00 Test Item Value Reference Range Interpretation Comments Sodium Lvl (test code = Sodium Lvl) 139 135-145 [facility] GreenvilleTeab[facility] [id number] 01:45:00 Test Item Value Reference Range Interpretation Comments Creatinine Lvl (test code = Creatinine 0.75 0.50-1.40 Lvl) [facility]2016-10-14 01:45:00 Test Item Value Reference Range Interpretation Comments BUN (test code = BUN) 6 7-22 [facility]2016-10-14 01:45:00 Test Item Value Reference Range Interpretation Comments Glucose Lvl (test code = Glucose Lvl) 82 70-99 [facility]villeTeab[facility] [id number] 01:45:00 Test Item Value Reference Range Interpretation Comments CO2 (test code = CO2) 26 24-32 [facility]2016-10-14 01:45:00 Test Item Value Reference Range Interpretation Comments Chloride Lvl (test code = Chloride Lvl) 104 95-109 [facility]villeTe[facility] [id number] 01:45:00 Test Item Value Reference Range Interpretation Comments Potassium Lvl (test code = Potassium 3.6 3.5-5.1 Lvl) [facility]2016-10-14 01:45:00 Test Item Value Reference Range Interpretation Comments Calcium Lvl (test code = Calcium Lvl) 8.0 8.5-10.5 [facility]2016-10-14 01:45:00 Test Item Value Reference Range Interpretation Comments ALT (test code = ALT) 41 See_Comment [Auto mated message] The system which ge nerated this result transmit kenyon reference range : <=65. The reference range was not used to interpr et this result as robinson l/abnormal. [facility]2016-10-14 01:45:00 Test Item Value Reference Range Interpretation Comments Albumin Lvl (test code = Albumin Lvl) 3.6 3.5-5.0 [facility]2016-10-14 01:45:00 Test Item Value Reference Range Interpretation Comments Total Protein (test code = Total 6.8 6.4-8.4 Protein) [facility]2016-10-14 01:45:00 Test Item Value Reference Range Interpretation Comments Alk Phos (test code = Alk Phos) 85 39-136 [facility]2016-10-14 01:45:00 Test Item Value Reference Range Interpretation Comments AST (test code = AST) 34 See_Comment [Auto mated message] The system which ge nerated this result transmit kenyon reference range : <=37. The reference range was not used to interpr et this result as robinson l/abnormal. [facility]2016-10-14 01:45:00 Test Item Value Reference Range Interpretation Comments AGAP (test code = AGAP) 12.6 10.0-20.0 [facility]2016-10-14 01:45:00 Test Item Value Reference Range Interpretation Comments Bili Total (test code = Bili Total) 0.4 0.2-1.3 [facility]ECYBK6957-77-81 01:45:00 Test Item Value Reference Range Interpretation Comments S Preg (test code = S Negative *NA*(02/18/16 Preg) 8:45 PM) [facility]nczetcLJCOUAMJAF3977-63-63 01:45:00 Test Item Value Reference Range Interpretation Comments Basophils # (test code 0.1 See_Comment [Aut omated message] The = Basophils #) system which generated this result tra nsmitted reference range : <=0.2. The reference r yuval was not used to int erpret this result as normal/abnormal . [facility]hamBejkdojUSHAKGDFRF6309-26-06 01:45:00 Test Item Value Reference Range Interpretation Comments Eosinophils # (test code 0.1 See_Comment [A utomated message] The = Eosinophils #) system ic h generated this result tra nsmitted reference range : <=0.5. The reference r yuval was not used to int erpret this result as normal/abnormal . [facility]hamYtjrubaQVUWDHBQGZ2914-38-81 01:45:00 Test Item Value Reference Range Interpretation Comments Segs (test code = Segs) 41.6 45.0-75.0 [facility] BrenhamNyltezlVLHRZWSQLJ7103-23-47 01:45:00 Test Item Value Reference Range Interpretation Comments Eosinophils (test code = 1.5 See_Comment [A utomated message] The Eosinophils) system which ge nerated this result tra nsmitted reference range : <=4.0. The reference r yuval was not used to int erpret this result as normal/abnormal . [facility]hamTtfzozhHTTCJWBASA6786-57-90 01:45:00 Test Item Value Reference Range Interpretation Comments Lymphocytes (test code = Lymphocytes) 45.0 20.0-40.0 [facility] BrenhamKljjwvgSLMGVUMHQC7283-32-07 01:45:00 Test Item Value Reference Range Interpretation Comments Monocytes (test code = Monocytes) 10.9 2.0-12.0 [facility]hamWxlzbmjIOEPMXRGZN7887-45-35 01:45:00 Test Item Value Reference Range Interpretation Comments Monocytes # (test code 0.7 See_Comment [Aut omated message] The = Monocytes #) system which generated this result tra nsmitted reference range : <=0.8. The reference r yuval was not used to int erpret this result as normal/abnormal . [facility] BrenhamVuwixtzYWRLYMQGTG5938-69-59 01:45:00 Test Item Value Reference Range Interpretation Comments Lymphocytes # (test code = Lymphocytes 3.1 1.0-5.5 #) [facility]hamApmbbclMZLMYGJWSM9776-91-00 01:45:00 Test Item Value Reference Range Interpretation Comments Segs-Bands # (test code = Segs-Bands #) 2.8 1.5-8.1 [facility] BrenhamNyygmqkOVRUSBIUOU4037-92-73 01:45:00 Test Item Value Reference Range Interpretation Comments Basophils (test code = 1.0 See_Comment [Aut omated message] The Basophils) system which ge nerated this result tra nsmitted reference range : <=1.0. The reference r yuval was not used to int erpret this result as normal/abnormal . [facility]hamMgrvuxtODZHVYSVIF4860-03-04 01:45:00 Test Item Value Reference Range Interpretation Comments MCV (test code = MCV) 89.3 80.0-98.0 [facility] BrenhamFhfojbiKXCOHYMRIF1249-09-70 01:45:00 Test Item Value Reference Range Interpretation Comments Hct (test code = Hct) 42.1 36.0-48.0 [facility] BrenhamGpqujhlCFIMEFXLNI4663-29-94 01:45:00 Test Item Value Reference Range Interpretation Comments Hgb (test code = Hgb) 14.5 12.0-16.0 [facility] BrenhamDwusistTOPBMNPMMM2407-37-75 01:45:00 Test Item Value Reference Range Interpretation Comments RBC (test code = RBC) 4.72 4.20-5.40 [facility] BrenhamAekhcduGYCDJOJVVK5971-90-51 01:45:00 Test Item Value Reference Range Interpretation Comments MCH (test code = MCH) 30.7 pg 27.0-31.0 [facility] BrenhamZvtxmebYALVZKTVZJ5018-69-33 01:45:00 Test Item Value Reference Range Interpretation Comments WBC (test code = WBC) 6.8 3.7-10.4 [facility]hamEgvfmvuEETYZWKWGT9875-66-75 01:45:00 Test Item Value Reference Range Interpretation Comments Platelet (test code = Platelet) 308 133-450 [facility] BrenhamTaztfakNPMUGVFZXN6384-27-91 01:45:00 Test Item Value Reference Range Interpretation Comments RDW (test code = RDW) 13.1 11.5-14.5 [facility] BrenhamZodgisvUWZFNEMIIL3669-99-56 01:45:00 Test Item Value Reference Range Interpretation Comments MPV (test code = MPV) 8.6 7.4-10.4 [facility] BrenhamNggjbvhPQMNZYPVUP2133-12-40 01:45:00 Test Item Value Reference Range Interpretation Comments MCHC (test code = MCHC) 34.4 32.0-36.0 [facility]hamAvvcxkrPXUCSXKQNK0404-12-03 01:45:00 Test Item Value Reference Range Interpretation Comments D-Dimer (test code = D-Dimer) no gt [facility] SpreadknowledgeannCARDIAC [id number] 01:45:00 Test Item Value Reference Range Interpretation Comments CK MB Index (test no gt See_Comment [Automate d message] The code = CK MB Index) system w hich generated this result transmit kenyon reference range : <=2.5. The reference range was not used to interpr et this result as robinson l/abnormal. [facility]annCARCardioKinetixAC CBROMRB3874-47-76 01:45:00 Test Item Value Reference Range Interpretation Comments Total CK (test code = Total CK) 59 12-191 [facility] HospitalannHaxiu.comAC QTYNQDO2604-34-43 01:45:00 Test Item Value Reference Range Interpretation Comments CK MB (test code = CK MB) no gt 0.5-3.6 [facility] HospitalannHaxiu.comAC NPMZULX1674-75-93 01:45:00 Test Item Value Reference Range Interpretation Comments Troponin-I (test code no gt See_Comment [Auto mated message] The = Troponin-I) system which g enerated this result transmit kenyon reference range : <=0.40. The reference r yuval was not used to interpr et this result as robinson l/abnormal. [facility] [employer] [id number] 01:45:00 Test Item Value Reference Range Interpretation Comments eGFR (test code = eGFR) 107 [facility] [employer] [id number] 01:45:00 Test Item Value Reference Range Interpretation Comments A/G Ratio (test code = A/G Ratio) 1.1 0.7-1.6 [facility] [employer] [id number] 01:45:00 Test Item Value Reference Range Interpretation Comments Globulin (test code = Globulin) 3.2 2.7-4.2 [facility] [employer] [id number] 01:45:00 Test Item Value Reference Range Interpretation Comments B/C Ratio (test code = B/C Ratio) 8 6-25 [facility] [employer] [id number] 01:45:00 Test Item Value Reference Range Interpretation Comments Sodium Lvl (test code = Sodium Lvl) 139 135-145 [facility] [employer] [id number] 01:45:00 Test Item Value Reference Range Interpretation Comments Creatinine Lvl (test code = Creatinine 0.75 0.50-1.40 Lvl) [facility]2016-10-14 01:45:00 Test Item Value Reference Range Interpretation Comments BUN (test code = BUN) 6 7-22 [facility]2016-10-14 01:45:00 Test Item Value Reference Range Interpretation Comments Glucose Lvl (test code = Glucose Lvl) 82 70-99 [facility]2016-10-14 01:45:00 Test Item Value Reference Range Interpretation Comments CO2 (test code = CO2) 26 24-32 [facility]2016-10-14 01:45:00 Test Item Value Reference Range Interpretation Comments Chloride Lvl (test code = Chloride Lvl) 104 95-109 [facility]2016-10-14 01:45:00 Test Item Value Reference Range Interpretation Comments Potassium Lvl (test code = Potassium 3.6 3.5-5.1 Lvl) [facility]2016-10-14 01:45:00 Test Item Value Reference Range Interpretation Comments Calcium Lvl (test code = Calcium Lvl) 8.0 8.5-10.5 [facility]2016-10-14 01:45:00 Test Item Value Reference Range Interpretation Comments ALT (test code = ALT) 41 See_Comment [Auto mated message] The system which ge nerated this result transmit kenyon reference range : <=65. The reference range was not used to interpr et this result as robinson l/abnormal. [facility]2016-10-14 01:45:00 Test Item Value Reference Range Interpretation Comments Albumin Lvl (test code = Albumin Lvl) 3.6 3.5-5.0 [place] 629936-10-14 01:45:00 Test Item Value Reference Range Interpretation Comments Total Protein (test code = Total 6.8 6.4-8.4 Protein) [facility]2016-10-14 01:45:00 Test Item Value Reference Range Interpretation Comments Alk Phos (test code = Alk Phos) 85 39-136 [facility]2016-10-14 01:45:00 Test Item Value Reference Range Interpretation Comments AST (test code = AST) 34 See_Comment [Auto mated message] The system which ge nerated this result transmit kenyon reference range : <=37. The reference range was not used to interpr et this result as robinson l/abnormal. [facility]2016-10-14 01:45:00 Test Item Value Reference Range Interpretation Comments AGAP (test code = AGAP) 12.6 10.0-20.0 [facility]2016-10-14 01:45:00 Test Item Value Reference Range Interpretation Comments Bili Total (test code = Bili Total) 0.4 0.2-1.3 [place] [address]2016-10-14 01:45:00 Test Item Value Reference Range Interpretation Comments S Preg (test code = S Negative *NA*(02/18/16 Preg) 8:45 PM) [facility]hamOplwbgsRWCJPDDHRA6235-17-10 01:45:00 Test Item Value Reference Range Interpretation Comments Basophils # (test code 0.1 See_Comment [Aut omated message] The = Basophils #) system which generated this result tra nsmitted reference range : <=0.2. The reference r yuval was not used to int erpret this result as normal/abnormal . [facility] BrenhamNparxaeMVUSONZEBI9428-90-33 01:45:00 Test Item Value Reference Range Interpretation Comments Eosinophils # (test code 0.1 See_Comment [A utomated message] The = Eosinophils #) system whic h generated this result tra nsmitted reference range : <=0.5. The reference r yuval was not used to int erpret this result as normal/abnormal . [facility]hamPpbguzlRISWTJYKAP6941-85-88 01:45:00 Test Item Value Reference Range Interpretation Comments Segs (test code = Segs) 41.6 45.0-75.0 [facility] BrenhamLuumgreOTOBSPZCKS1906-12-06 01:45:00 Test Item Value Reference Range Interpretation Comments Eosinophils (test code = 1.5 See_Comment [A utomated message] The Eosinophils) system which ge nerated this result tra nsmitted reference range : <=4.0. The reference r yuval was not used to int erpret this result as normal/abnormal . [facility] BrenhamCqpfptfNTOGSOIDWN6798-29-99 01:45:00 Test Item Value Reference Range Interpretation Comments Lymphocytes (test code = Lymphocytes) 45.0 20.0-40.0 [facility] BrenhamBjcazalBUKKBJCQBC0912-48-90 01:45:00 Test Item Value Reference Range Interpretation Comments Monocytes (test code = Monocytes) 10.9 2.0-12.0 [facility] BrenhamHvairlnHJTZKIVROP5746-31-24 01:45:00 Test Item Value Reference Range Interpretation Comments Monocytes # (test code 0.7 See_Comment [Aut omated message] The = Monocytes #) system which generated this result tra nsmitted reference range : <=0.8. The reference r yuval was not used to int erpret this result as normal/abnormal . [facility] BrenhamWwzhunlFMKKKTPWUR4039-15-59 01:45:00 Test Item Value Reference Range Interpretation Comments Lymphocytes # (test code = Lymphocytes 3.1 1.0-5.5 #) [facility] BrenhamXzghawzHRVLNDYGHK3771-46-55 01:45:00 Test Item Value Reference Range Interpretation Comments Segs-Bands # (test code = Segs-Bands #) 2.8 1.5-8.1 [facility] BrenhamLbbczlfUVVVKXUJKZ7758-63-73 01:45:00 Test Item Value Reference Range Interpretation Comments Basophils (test code = 1.0 See_Comment [Aut omated message] The Basophils) system which ge nerated this result tra nsmitted reference range : <=1.0. The reference r yuval was not used to int erpret this result as normal/abnormal . [facility] BrenhamXlxvgpgZQWZBHEIZL1321-14-54 01:45:00 Test Item Value Reference Range Interpretation Comments MCV (test code = MCV) 89.3 80.0-98.0 [facility] BrenhamJforuddYJSQOWFEFK8845-35-42 01:45:00 Test Item Value Reference Range Interpretation Comments Hct (test code = Hct) 42.1 36.0-48.0 [facility] BrenhamZwetxxsQPMACMMVRZ4832-20-68 01:45:00 Test Item Value Reference Range Interpretation Comments Hgb (test code = Hgb) 14.5 12.0-16.0 [facility] BrenhamLerdtinSNYWUTCOON0909-69-12 01:45:00 Test Item Value Reference Range Interpretation Comments RBC (test code = RBC) 4.72 4.20-5.40 [facility] BrenhamMpulrzsUBZBODWIWS0399-18-63 01:45:00 Test Item Value Reference Range Interpretation Comments MCH (test code = MCH) 30.7 pg 27.0-31.0 [facility] BrenhamTvycydlPBQXNUMUZB5913-31-98 01:45:00 Test Item Value Reference Range Interpretation Comments WBC (test code = WBC) 6.8 3.7-10.4 [facility]hamArdqnqzNUGAJXWNMU1511-41-84 01:45:00 Test Item Value Reference Range Interpretation Comments Platelet (test code = Platelet) 308 133-450 [facility] BrenhamRpaovnlLWBBOAVRIB6416-99-17 01:45:00 Test Item Value Reference Range Interpretation Comments RDW (test code = RDW) 13.1 11.5-14.5 [facility] BrenhamVbcpyfmCKKUCPILMK4381-29-02 01:45:00 Test Item Value Reference Range Interpretation Comments MPV (test code = MPV) 8.6 7.4-10.4 [facility] BrenhamBacuomyDJOWRVALDD6483-21-19 01:45:00 Test Item Value Reference Range Interpretation Comments MCHC (test code = MCHC) 34.4 32.0-36.0 [facility] BrenhamTsbharaZWPPRJBUHV8014-03-59 01:45:00 Test Item Value Reference Range Interpretation Comments D-Dimer (test code = D-Dimer) no gt [facility]2016-05-09 13:46:00 Test Item Value Reference Range Interpretation Comments BUN (test code = BUN) 7 7-22 [facility]2016-05-09 13:46:00 Test Item Value Reference Range Interpretation Comments Glucose Lvl (test code = Glucose Lvl) 76 70-99 [facility] BrenhamJzvltfzLZOXWRPGNA6552-83-85 13:46:00 Test Item Value Reference Range Interpretation Comments Lymphocytes # (test code = Lymphocytes 2.4 1.0-5.5 #) [facility] BrenhamBbssbqeEUIHUMPCDD4629-93-62 13:46:00 Test Item Value Reference Range Interpretation Comments Monocytes # (test code 0.5 See_Comment [Aut omated message] The = Monocytes #) system which generated this result tra nsmitted reference range : <=0.8. The reference r yuval was not used to int erpret this result as normal/abnormal . [facility]hamMqhxdzxWZEPWMNOKR1650-77-69 13:46:00 Test Item Value Reference Range Interpretation Comments Eosinophils # (test code 0.2 See_Comment [A utomated message] The = Eosinophils #) system whic h generated this result tra nsmitted reference range : <=0.5. The reference r yuval was not used to int erpret this result as normal/abnormal . [facility] BrenhamJpuejkdWOPOECEUHZ8480-24-05 13:46:00 Test Item Value Reference Range Interpretation Comments Basophils # (test code 0.1 See_Comment [Aut omated message] The = Basophils #) system which generated this result tra nsmitted reference range : <=0.2. The reference r yuval was not used to int erpret this result as normal/abnormal . [facility] BrenhamBtabyceKVCEGDKWPM7322-85-39 13:46:00 Test Item Value Reference Range Interpretation Comments Segs (test code = Segs) 53.2 45.0-75.0 [facility] BrenhamBkcutgzVMLSYZCVRF2192-21-88 13:46:00 Test Item Value Reference Range Interpretation Comments Lymphocytes (test code = Lymphocytes) 35.5 20.0-40.0 [facility] BrenhamLmwrztaPSGPCFWMDT1485-20-86 13:46:00 Test Item Value Reference Range Interpretation Comments Segs-Bands # (test code = Segs-Bands #) 3.6 1.5-8.1 [facility] BrenhamXsyubyyQQIOGTQTSU8551-94-44 13:46:00 Test Item Value Reference Range Interpretation Comments Monocytes (test code = Monocytes) 7.7 2.0-12.0 [facility] BrenhamZrkufknZHVYQMTAKR1890-79-10 13:46:00 Test Item Value Reference Range Interpretation Comments Eosinophils (test code = 2.4 See_Comment [A utomated message] The Eosinophils) system which ge nerated this result tra nsmitted reference range : <=4.0. The reference r yuval was not used to int erpret this result as normal/abnormal . [facility] BrenhamLonyhhqJVMRUZVYMP7789-77-57 13:46:00 Test Item Value Reference Range Interpretation Comments Basophils (test code = 1.2 See_Comment [Aut omated message] The Basophils) system which ge nerated this result tra nsmitted reference range : <=1.0. The reference r yuval was not used to int erpret this result as normal/abnormal . [facility] BrenhamXpbtmgpKZYDUPCBON0291-76-84 13:46:00 Test Item Value Reference Range Interpretation Comments MCV (test code = MCV) 91.2 80.0-98.0 [facility] BrenhamCrvepqtALJMDNGRJY9838-23-75 13:46:00 Test Item Value Reference Range Interpretation Comments MCH (test code = MCH) 30.7 pg 27.0-31.0 [facility] BrenhamGnzpksjYSUPFNAJQC9126-69-99 13:46:00 Test Item Value Reference Range Interpretation Comments MPV (test code = MPV) 10.1 7.4-10.4 [facility] BrenhamJpslfvnSXUOXKMTCI3029-24-15 13:46:00 Test Item Value Reference Range Interpretation Comments Hct (test code = Hct) 43.8 36.0-48.0 [facility] BrenhamFnengmjMRIGLWASFW2041-92-70 13:46:00 Test Item Value Reference Range Interpretation Comments RBC (test code = RBC) 4.80 4.20-5.40 [facility] BrenhamGfepqxcHWSRNAEAEE9322-69-14 13:46:00 Test Item Value Reference Range Interpretation Comments Hgb (test code = Hgb) 14.7 12.0-16.0 [facility] BrenhamAoeizooXFERPWITKH8255-77-08 13:46:00 Test Item Value Reference Range Interpretation Comments MCHC (test code = MCHC) 33.7 32.0-36.0 [facility] BrenhamPxvadikGDRBGRWRZY6007-52-27 13:46:00 Test Item Value Reference Range Interpretation Comments RDW (test code = RDW) 14.0 11.5-14.5 [facility] BrenhamZaorxnaEIFLEBYSRC6591-99-62 13:46:00 Test Item Value Reference Range Interpretation Comments Platelet (test code = Platelet) 220 133-450 [facility] BrenhamYucakdgNMWVPVCCRI8998-66-51 13:46:00 Test Item Value Reference Range Interpretation Comments WBC (test code = WBC) 6.7 3.7-10.4 [facility]2016-05-09 13:46:00 Test Item Value Reference Range Interpretation Comments B/C Ratio (test code = B/C Ratio) 8 6-25 [facility]2016-05-09 13:46:00 Test Item Value Reference Range Interpretation Comments Globulin (test code = Globulin) 3.4 2.0-4.0 [facility]2016-05-09 13:46:00 Test Item Value Reference Range Interpretation Comments AGAP (test code = AGAP) 13.0 10.0-20.0 [facility]2016-05-09 13:46:00 Test Item Value Reference Range Interpretation Comments A/G Ratio (test code = A/G Ratio) 1.1 0.7-1.6 [facility]2016-05-09 13:46:00 Test Item Value Reference Range Interpretation Comments eGFR (test code = eGFR) 85 [facility]2016-05-09 13:46:00 Test Item Value Reference Range Interpretation Comments ALT (test code = ALT) 30 See_Comment [Auto mated message] The system which ge nerated this result transmit kenyon reference range : <=65. The reference range was not used to interpr et this result as robinson l/abnormal. [facility]2016-05-09 13:46:00 Test Item Value Reference Range Interpretation Comments Total Protein (test code = Total 7.3 6.4-8.4 Protein) [facility]2016-05-09 13:46:00 Test Item Value Reference Range Interpretation Comments Albumin Lvl (test code = Albumin Lvl) 3.9 3.5-5.0 [facility]2016-05-09 13:46:00 Test Item Value Reference Range Interpretation Comments Bili Total (test code = Bili Total) 0.5 0.2-1.3 [facility]2016-05-09 13:46:00 Test Item Value Reference Range Interpretation Comments CO2 (test code = CO2) 23 24-32 [facility]2016-05-09 13:46:00 Test Item Value Reference Range Interpretation Comments Calcium Lvl (test code = Calcium Lvl) 8.8 8.5-10.5 [facility]2016-05-09 13:46:00 Test Item Value Reference Range Interpretation Comments AST (test code = AST) 17 See_Comment [Auto mated message] The system which ge nerated this result transmit kenyon reference range : <=37. The reference range was not used to interpr et this result as robinson l/abnormal. [facility]villeTeab[facility] [id number] 13:46:00 Test Item Value Reference Range Interpretation Comments Alk Phos (test code = Alk Phos) 78 39-136 [facility]villeTeab[facility] [id number] 13:46:00 Test Item Value Reference Range Interpretation Comments Potassium Lvl (test code = Potassium 4.0 3.5-5.1 Lvl) [facility]2016-05-09 13:46:00 Test Item Value Reference Range Interpretation Comments Chloride Lvl (test code = Chloride Lvl) 106 95-109 [facility]2016-05-09 13:46:00 Test Item Value Reference Range Interpretation Comments Sodium Lvl (test code = Sodium Lvl) 138 135-145 [facility]2016-05-09 13:46:00 Test Item Value Reference Range Interpretation Comments Creatinine Lvl (test code = Creatinine 0.90 0.50-1.40 Lvl) [facility]2016-05-09 13:46:00 Test Item Value Reference Range Interpretation Comments BUN (test code = BUN) 7 7-22 [place] 629936-05-09 13:46:00 Test Item Value Reference Range Interpretation Comments Glucose Lvl (test code = Glucose Lvl) 76 70-99 [facility] [place]YomcaefFJDUBTUBOY5822-57-05 13:46:00 Test Item Value Reference Range Interpretation Comments Lymphocytes # (test code = Lymphocytes 2.4 1.0-5.5 #) [facility] BrenhamTblyzbaJKFATMHBZF9309-20-77 13:46:00 Test Item Value Reference Range Interpretation Comments Monocytes # (test code 0.5 See_Comment [Aut omated message] The = Monocytes #) system which generated this result tra nsmitted reference range : <=0.8. The reference r yuval was not used to int erpret this result as normal/abnormal . [facility] BrenhamVdagnujAURZXMRGBN5109-34-23 13:46:00 Test Item Value Reference Range Interpretation Comments Eosinophils # (test code 0.2 See_Comment [A utomated message] The = Eosinophils #) system whic h generated this result tra nsmitted reference range : <=0.5. The reference r yuval was not used to int erpret this result as normal/abnormal . [facility] BrenhamUnatoqfPARPBZXYDS0081-33-90 13:46:00 Test Item Value Reference Range Interpretation Comments Basophils # (test code 0.1 See_Comment [Aut omated message] The = Basophils #) system which generated this result tra nsmitted reference range : <=0.2. The reference r yuval was not used to int erpret this result as normal/abnormal . [place] [address]-05-09 13:46:00 Test Item Value Reference Range Interpretation Comments Segs (test code = Segs) 53.2 45.0-75.0 [facility] BrenhamVvrboxwZBLHFQFENX2709-96-72 13:46:00 Test Item Value Reference Range Interpretation Comments Lymphocytes (test code = Lymphocytes) 35.5 20.0-40.0 [facility] BrenhamWbolfzvJUOKSVBPUD0593-58-25 13:46:00 Test Item Value Reference Range Interpretation Comments Segs-Bands # (test code = Segs-Bands #) 3.6 1.5-8.1 [facility] BrenhamIqlaouyHKUXMMZNMP3336-00-06 13:46:00 Test Item Value Reference Range Interpretation Comments Monocytes (test code = Monocytes) 7.7 2.0-12.0 [facility] BrenhamTyfblmtKKIDZKROYH1376-94-94 13:46:00 Test Item Value Reference Range Interpretation Comments Eosinophils (test code = 2.4 See_Comment [A utomated message] The Eosinophils) system which ge nerated this result tra nsmitted reference range : <=4.0. The reference r yuval was not used to int erpret this result as normal/abnormal . [facility] BrenhamMzogvdvDGZLNXYGKS0446-32-08 13:46:00 Test Item Value Reference Range Interpretation Comments Basophils (test code = 1.2 See_Comment [Aut omated message] The Basophils) system which ge nerated this result tra nsmitted reference range : <=1.0. The reference r yuval was not used to int erpret this result as normal/abnormal . [facility] BrenhamRujnnjnBCJMDVLBJY0488-17-37 13:46:00 Test Item Value Reference Range Interpretation Comments MCV (test code = MCV) 91.2 80.0-98.0 [facility] BrenhamMljmyeyTTILNNTPJY8460-38-35 13:46:00 Test Item Value Reference Range Interpretation Comments MCH (test code = MCH) 30.7 pg 27.0-31.0 [facility] BrenhamWztzyfmJKJGSNFEEH3072-71-88 13:46:00 Test Item Value Reference Range Interpretation Comments MPV (test code = MPV) 10.1 7.4-10.4 [facility] BrenhamOftxsakEWXMFHASEJ3529-65-79 13:46:00 Test Item Value Reference Range Interpretation Comments Hct (test code = Hct) 43.8 36.0-48.0 [facility] BrenhamKmrgdokQFRWAMXXCL2760-25-12 13:46:00 Test Item Value Reference Range Interpretation Comments RBC (test code = RBC) 4.80 4.20-5.40 [facility] BrenhamAwgclqpHMPPGWUGMB5011-49-67 13:46:00 Test Item Value Reference Range Interpretation Comments Hgb (test code = Hgb) 14.7 12.0-16.0 [facility] BrenhamOavrqxsOQOGOBJNLJ9982-99-55 13:46:00 Test Item Value Reference Range Interpretation Comments MCHC (test code = MCHC) 33.7 32.0-36.0 [facility] BrenhamXwzbhzkQFXQWGZRFS9607-58-13 13:46:00 Test Item Value Reference Range Interpretation Comments RDW (test code = RDW) 14.0 11.5-14.5 [facility] BrenhamHtpegquLNORKTNHOI7789-02-64 13:46:00 Test Item Value Reference Range Interpretation Comments Platelet (test code = Platelet) 220 133-450 [facility] BrenhamZazhqonJOCPJPPLVB6601-13-09 13:46:00 Test Item Value Reference Range Interpretation Comments WBC (test code = WBC) 6.7 3.7-10.4 [facility]2016-05-09 13:46:00 Test Item Value Reference Range Interpretation Comments B/C Ratio (test code = B/C Ratio) 8 6-25 [facility]2016-05-09 13:46:00 Test Item Value Reference Range Interpretation Comments Globulin (test code = Globulin) 3.4 2.0-4.0 [facility]2016-05-09 13:46:00 Test Item Value Reference Range Interpretation Comments AGAP (test code = AGAP) 13.0 10.0-20.0 [facility]2016-05-09 13:46:00 Test Item Value Reference Range Interpretation Comments A/G Ratio (test code = A/G Ratio) 1.1 0.7-1.6 [facility]2016-05-09 13:46:00 Test Item Value Reference Range Interpretation Comments eGFR (test code = eGFR) 85 [place] 629936-05-09 13:46:00 Test Item Value Reference Range Interpretation Comments ALT (test code = ALT) 30 See_Comment [Auto mated message] The system which ge nerated this result transmit kenyon reference range : <=65. The reference range was not used to interpr et this result as robinson l/abnormal. [facility]2016-05-09 13:46:00 Test Item Value Reference Range Interpretation Comments Total Protein (test code = Total 7.3 6.4-8.4 Protein) [facility]2016-05-09 13:46:00 Test Item Value Reference Range Interpretation Comments Albumin Lvl (test code = Albumin Lvl) 3.9 3.5-5.0 [facility]2016-05-09 13:46:00 Test Item Value Reference Range Interpretation Comments Bili Total (test code = Bili Total) 0.5 0.2-1.3 [facility]2016-05-09 13:46:00 Test Item Value Reference Range Interpretation Comments CO2 (test code = CO2) 23 24-32 [facility]2016-05-09 13:46:00 Test Item Value Reference Range Interpretation Comments Calcium Lvl (test code = Calcium Lvl) 8.8 8.5-10.5 [facility]2016-05-09 13:46:00 Test Item Value Reference Range Interpretation Comments AST (test code = AST) 17 See_Comment [Auto mated message] The system which ge nerated this result transmit kenyon reference range : <=37. The reference range was not used to interpr et this result as robinson l/abnormal. [facility]2016-05-09 13:46:00 Test Item Value Reference Range Interpretation Comments Alk Phos (test code = Alk Phos) 78 39-136 [facility]2016-05-09 13:46:00 Test Item Value Reference Range Interpretation Comments Potassium Lvl (test code = Potassium 4.0 3.5-5.1 Lvl) [facility]2016-05-09 13:46:00 Test Item Value Reference Range Interpretation Comments Chloride Lvl (test code = Chloride Lvl) 106 95-109 [facility]2016-05-09 13:46:00 Test Item Value Reference Range Interpretation Comments Sodium Lvl (test code = Sodium Lvl) 138 135-145 [place] 629936-05-09 13:46:00 Test Item Value Reference Range Interpretation Comments Creatinine Lvl (test code = Creatinine 0.90 0.50-1.40 Lvl) [facility]2016-05-09 13:46:00 Test Item Value Reference Range Interpretation Comments BUN (test code = BUN) 7 7-22 [facility]2016-05-09 13:46:00 Test Item Value Reference Range Interpretation Comments Glucose Lvl (test code = Glucose Lvl) 76 70-99 [facility] BrenhamZehzukgAUBIMGOLPS0330-77-48 13:46:00 Test Item Value Reference Range Interpretation Comments Lymphocytes # (test code = Lymphocytes 2.4 1.0-5.5 #) [facility] BrenhamGtfqkpdFMHBVEWYRB8182-91-03 13:46:00 Test Item Value Reference Range Interpretation Comments Monocytes # (test code 0.5 See_Comment [Aut omated message] The = Monocytes #) system which generated this result tra nsmitted reference range : <=0.8. The reference r yuval was not used to int erpret this result as normal/abnormal . [facility] BrenhamIpktcrmTSCEPVUJSU3311-07-59 13:46:00 Test Item Value Reference Range Interpretation Comments Eosinophils # (test code 0.2 See_Comment [A utomated message] The = Eosinophils #) system whic h generated this result tra nsmitted reference range : <=0.5. The reference r yuval was not used to int erpret this result as normal/abnormal . [facility] BrenhamCtsislpZBGGEUVZSG1525-74-42 13:46:00 Test Item Value Reference Range Interpretation Comments Basophils # (test code 0.1 See_Comment [Aut omated message] The = Basophils #) system which generated this result tra nsmitted reference range : <=0.2. The reference r yuval was not used to int erpret this result as normal/abnormal . [facility] BrenhamSfativlWKHMCQICBV0578-13-72 13:46:00 Test Item Value Reference Range Interpretation Comments Segs (test code = Segs) 53.2 45.0-75.0 [facility] BrenhamOifuqliCSECSCIGZX5453-04-92 13:46:00 Test Item Value Reference Range Interpretation Comments Lymphocytes (test code = Lymphocytes) 35.5 20.0-40.0 [facility] BrenhamQioqzghODKJMDCEJB6312-49-83 13:46:00 Test Item Value Reference Range Interpretation Comments Segs-Bands # (test code = Segs-Bands #) 3.6 1.5-8.1 [facility] BrenhamRxxgrxgAEXKGETCRW5325-19-93 13:46:00 Test Item Value Reference Range Interpretation Comments Monocytes (test code = Monocytes) 7.7 2.0-12.0 [facility] [place]hamEncjcssJUBOCJDONX2483-79-18 13:46:00 Test Item Value Reference Range Interpretation Comments Eosinophils (test code = 2.4 See_Comment [A utomated message] The Eosinophils) system which ge nerated this result tra nsmitted reference range : <=4.0. The reference r yuval was not used to int erpret this result as normal/abnormal . [facility] BrenhamZicdpzhATICNBVQLP9921-92-81 13:46:00 Test Item Value Reference Range Interpretation Comments Basophils (test code = 1.2 See_Comment [Aut omated message] The Basophils) system which ge nerated this result tra nsmitted reference range : <=1.0. The reference r yuval was not used to int erpret this result as normal/abnormal . [facility] BrenhamIuhmqgfXYPBIUJMMM4801-13-12 13:46:00 Test Item Value Reference Range Interpretation Comments MCV (test code = MCV) 91.2 80.0-98.0 [facility] BrenhamGaczxraQOIGCPPSTK1495-86-01 13:46:00 Test Item Value Reference Range Interpretation Comments MCH (test code = MCH) 30.7 pg 27.0-31.0 [facility] BrenhamNpstnnzTKXYTXLLCJ1937-88-20 13:46:00 Test Item Value Reference Range Interpretation Comments MPV (test code = MPV) 10.1 7.4-10.4 [facility] BrenhamZuabeksWUDVAOYHZX0025-80-12 13:46:00 Test Item Value Reference Range Interpretation Comments Hct (test code = Hct) 43.8 36.0-48.0 [facility] BrenhamNngyztlSTCKZVLJEV1879-79-94 13:46:00 Test Item Value Reference Range Interpretation Comments RBC (test code = RBC) 4.80 4.20-5.40 [facility] BrenhamTdzwxqePUUENQWSRC1402-40-19 13:46:00 Test Item Value Reference Range Interpretation Comments Hgb (test code = Hgb) 14.7 12.0-16.0 [facility] BrenhamEkcceiwOJMASBGWWY7681-16-32 13:46:00 Test Item Value Reference Range Interpretation Comments MCHC (test code = MCHC) 33.7 32.0-36.0 [facility] BrenhamRljdkdnDFOQUHQKUH9728-83-86 13:46:00 Test Item Value Reference Range Interpretation Comments RDW (test code = RDW) 14.0 11.5-14.5 [facility] BrenhamVdbsagkGIQKJXCJBC6770-16-43 13:46:00 Test Item Value Reference Range Interpretation Comments Platelet (test code = Platelet) 220 133-450 [facility] BrenhamLfyravzWUVFKJFFLF2770-93-46 13:46:00 Test Item Value Reference Range Interpretation Comments WBC (test code = WBC) 6.7 3.7-10.4 [facility]2016-05-09 13:46:00 Test Item Value Reference Range Interpretation Comments B/C Ratio (test code = B/C Ratio) 8 6-25 [facility]2016-05-09 13:46:00 Test Item Value Reference Range Interpretation Comments Globulin (test code = Globulin) 3.4 2.0-4.0 [facility]2016-05-09 13:46:00 Test Item Value Reference Range Interpretation Comments AGAP (test code = AGAP) 13.0 10.0-20.0 [facility]2016-05-09 13:46:00 Test Item Value Reference Range Interpretation Comments A/G Ratio (test code = A/G Ratio) 1.1 0.7-1.6 [facility]2016-05-09 13:46:00 Test Item Value Reference Range Interpretation Comments eGFR (test code = eGFR) 85 [facility]2016-05-09 13:46:00 Test Item Value Reference Range Interpretation Comments ALT (test code = ALT) 30 See_Comment [Auto mated message] The system which ge nerated this result transmit kenyon reference range : <=65. The reference range was not used to interpr et this result as robinson l/abnormal. [facility]2016-05-09 13:46:00 Test Item Value Reference Range Interpretation Comments Total Protein (test code = Total 7.3 6.4-8.4 Protein) [facility]2016-05-09 13:46:00 Test Item Value Reference Range Interpretation Comments Albumin Lvl (test code = Albumin Lvl) 3.9 3.5-5.0 [facility]2016-05-09 13:46:00 Test Item Value Reference Range Interpretation Comments Bili Total (test code = Bili Total) 0.5 0.2-1.3 [facility]2016-05-09 13:46:00 Test Item Value Reference Range Interpretation Comments CO2 (test code = CO2) 23 24-32 [facility]2016-05-09 13:46:00 Test Item Value Reference Range Interpretation Comments Calcium Lvl (test code = Calcium Lvl) 8.8 8.5-10.5 [facility]2016-05-09 13:46:00 Test Item Value Reference Range Interpretation Comments AST (test code = AST) 17 See_Comment [Auto mated message] The system which ge nerated this result transmit kenyon reference range : <=37. The reference range was not used to interpr et this result as robinson l/abnormal. [facility]2016-05-09 13:46:00 Test Item Value Reference Range Interpretation Comments Alk Phos (test code = Alk Phos) 78 39-136 [place] 629936-05-09 13:46:00 Test Item Value Reference Range Interpretation Comments Potassium Lvl (test code = Potassium 4.0 3.5-5.1 Lvl) [facility]2016-05-09 13:46:00 Test Item Value Reference Range Interpretation Comments Chloride Lvl (test code = Chloride Lvl) 106 95-109 [facility]2016-05-09 13:46:00 Test Item Value Reference Range Interpretation Comments Sodium Lvl (test code = Sodium Lvl) 138 135-145 [place] 629936-05-09 13:46:00 Test Item Value Reference Range Interpretation Comments Creatinine Lvl (test code = Creatinine 0.90 0.50-1.40 Lvl) [facility]2016-05-09 13:46:00 Test Item Value Reference Range Interpretation Comments BUN (test code = BUN) 7 7-22 [facility]2016-05-09 13:46:00 Test Item Value Reference Range Interpretation Comments Glucose Lvl (test code = Glucose Lvl) 76 70-99 [facility] BrenhamVshjqvxTLBBRVWPQV9642-52-87 13:46:00 Test Item Value Reference Range Interpretation Comments Lymphocytes # (test code = Lymphocytes 2.4 1.0-5.5 #) [facility] BrenhamAffjnkoTBNBSQAUUP0422-97-65 13:46:00 Test Item Value Reference Range Interpretation Comments Monocytes # (test code 0.5 See_Comment [Aut omated message] The = Monocytes #) system which generated this result tra nsmitted reference range : <=0.8. The reference r yuval was not used to int erpret this result as normal/abnormal . [facility] BrenhamPtltxkrHWNUMRCFVA8773-83-28 13:46:00 Test Item Value Reference Range Interpretation Comments Eosinophils # (test code 0.2 See_Comment [A utomated message] The = Eosinophils #) system whic h generated this result tra nsmitted reference range : <=0.5. The reference r yuval was not used to int erpret this result as normal/abnormal . [facility] BrenhamOvfagyqJUMYAFBFYY3719-85-37 13:46:00 Test Item Value Reference Range Interpretation Comments Basophils # (test code 0.1 See_Comment [Aut omated message] The = Basophils #) system which generated this result tra nsmitted reference range : <=0.2. The reference r yuval was not used to int erpret this result as normal/abnormal . [facility] BrenhamQhaomxbGZQCLUVMHQ2355-05-04 13:46:00 Test Item Value Reference Range Interpretation Comments Segs (test code = Segs) 53.2 45.0-75.0 [facility] BrenhamOfoyyepKNGBUXOFYP3115-18-26 13:46:00 Test Item Value Reference Range Interpretation Comments Lymphocytes (test code = Lymphocytes) 35.5 20.0-40.0 [facility] BrenhamUnijqayNELEJQMZGO5496-99-19 13:46:00 Test Item Value Reference Range Interpretation Comments Segs-Bands # (test code = Segs-Bands #) 3.6 1.5-8.1 [facility] BrenhamGeyuynoZBRTFTLURP4735-13-35 13:46:00 Test Item Value Reference Range Interpretation Comments Monocytes (test code = Monocytes) 7.7 2.0-12.0 [facility] BrenhamHpdegdsDXPINLMTFH1989-98-71 13:46:00 Test Item Value Reference Range Interpretation Comments Eosinophils (test code = 2.4 See_Comment [A utomated message] The Eosinophils) system which ge nerated this result tra nsmitted reference range : <=4.0. The reference r yuval was not used to int erpret this result as normal/abnormal . [facility] BrenhamKczknztZTCCUASFBM7755-76-81 13:46:00 Test Item Value Reference Range Interpretation Comments Basophils (test code = 1.2 See_Comment [Aut omated message] The Basophils) system which ge nerated this result tra nsmitted reference range : <=1.0. The reference r yuval was not used to int erpret this result as normal/abnormal . [facility] BrenhamYxdcfavROCQSTUQWT9548-72-16 13:46:00 Test Item Value Reference Range Interpretation Comments MCV (test code = MCV) 91.2 80.0-98.0 [facility] BrenhamLrowdahEHESGLRHNJ2010-00-82 13:46:00 Test Item Value Reference Range Interpretation Comments MCH (test code = MCH) 30.7 pg 27.0-31.0 [facility]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
--- NOTE | 2022-10-26 20:45 | RAD REPORT ---
[facility]38 pm CLINICAL HISTORY: CHEST PAIN COMPARISON: Chest Pa And Lat (2 Views) dated 02/01/2022 TECHNIQUE: Portable AP view of the chest. FINDINGS: The lungs are clear. No pneumothorax or effusion. The cardiomediastinal contours are unre markable. Spinal rods unchanged in configuration. IMPRESSION: No acute cardiopulmonary process.
[2022-10-26] MEDS ORDERED: NA CHLORIDE 0.9% 1,000 ML ONE (20:59)
[2022-10-26 21:04] LABS: Absolute Lymphocytes (CBC) 3.9 K/uL (0.7-4.9); Hematocrit 45.3 % (36.0-45.0); MCV 82.7 fL (80-100); MPV 8.2 fL (7.6-11.3); RBC Red Blood Cell Count 5.47 M/uL (3.86-4.86)
[2022-10-26 21:05] LABS: Protime INR 0.97
[2022-10-26 21:24] LABS: ALT/SGPT 23 U/L (13-56); AST/SGOT 14 U/L (15-37); Albumin 3.9 g/dL (3.4-5.0); Alkaline Phosphatase 142 U/L (45-117); BUN Blood Urea Nitrogen 16 mg/dL (7-18); Bicarbonate 30 mEq/L (21-32); Bilirubin Total 0.2 mg/dL (0.2-1.0); Glomerular Filtration Rate 73 ml/min (=/>90); Glucose Level 94 mg/dL (74-106); NT PRO-BNP 8 pg/mL (<125); Sodium Level 137 mEq/L (136-145); Troponin High Sensitivity 17.8 pg/mL (<58.9)
[2022-10-26 22:47] LABS: Bilirubin Direct < 0.1 mg/dL (0-0.2); Bilirubin Indirect, Calculated ND mg/dL (0.2-0.8); Potassium 2.6 mEq/L (3.5-5.1)
--- NOTE | 2022-10-26 23:21 | ER ---
Nurse's Notes [facility] Name: Mary Johnson Age: 37 yrs Sex: Female : 1985 Arrival Date: 10/26/2022 Time: 20:12 Bed 7 Private MD: Diagnosis: Chest pain, unspecified;Non cardiac chest pain Presentation: 10/26 20:23 Chief complaint: Patient states: I feel like i have a bubble in my chest and I have kd3 sever jaw pain. The jaw pain is in both sides. I have TMJ but i feel like this came on suddenly. I feel like i am short of breath as well. I have been feeling back since 6:30 this morning. Ebola Screen: No symptoms or risks identified at this time. Initial Sepsis Screen: Does the patient meet any 2 criteria? No. Patient's initial sepsis screen is negative. Does the patient have a suspected source of infection? No. Patient's initial sepsis screen is negative. Risk Assessment: Do you want to hurt yourself or someone else? Patient reports no desire to harm self or others. Onset of symptoms was October 26, 2022. 20:23 Method Of Arrival: Ambulatory kd3 20:23 Acuity: BENITO 3 kd3 20:29 Coronavirus screen: Vaccine status: Patient reports receiving the 2nd dose of the covid kd3 vaccine. Triage Assessment: 20:25 General: Behavior is calm, cooperative. kd3 20:29 General: Appears. kd3 20:30 Pain: Complains of pain in right jaw, left jaw and chest. Cardiovascular: Capillary kd3 refill < 3 seconds Patient's skin is warm and dry. Respiratory: Airway is patent Trachea midline Respiratory effort is even, unlabored, Respiratory pattern is regular, symmetrical. 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 - Social history:: Smoking status: Patient denies any tobacco usage or history of. - Family history:: not pertinent. Screenin:29 [facility] ED Fall Risk Assessment (Adult) History of falling in the last 3 months, kd3 including since admission No falls in past 3 months (0 pts) Confusion or Disorientation No (0 pts) Intoxicated or Sedated No (0 pts) Impaired Gait No (0 pts) Mobility Assist Device Used No (0 pt) Altered Elimination No (0 pt) Score/Fall Risk Level 0 - 2 = Low Risk Maintained a safe environment. Abuse screen: Denies threats or abuse. Denies injuries from another. Nutritional screening: No deficits noted. Tuberculosis screening: No symptoms or risk factors identified. Assessment: 21:04 General: Appears in no apparent distress. comfortable, Behavior is calm, cooperative. rv Pain: Complains of pain in chest Pain radiates to chest Pain began suddenly. Neuro: Level of Consciousness is awake, alert, obeys commands, Oriented to person, place, time, situation. Cardiovascular: Capillary refill < 3 seconds Rhythm is sinus rhythm. Cardiovascular: Reports chest pain. Respiratory: Airway is patent Respiratory effort is even, unlabored. Vital Signs: 20:23 Pulse 108; Resp 20; Pulse Ox 96% on R/A; kd3 20:29 Pulse 101; Resp 18; Pulse Ox 99% on R/A; kd3 20:30 Weight 106.59 kg; Height 5 ft. 7 in. ; kd3 20:31 BP 121 / 96; kd3 21:00 BP 143 / 96; Pulse 95; Resp 16; Pulse Ox 99% on R/A; rv 22:00 BP 142 / 99; Pulse 91; Resp 18; Pulse Ox 99% on R/A; rv 23:14 BP 141 / 92; Pulse 85; Resp 16; Temp 98; Pulse Ox 98% on R/A; rv 20:30 Body Mass Index 36.81 (106.59 kg, 170.18 cm) kd3 [place] Coma Score: 23:14 Eye Response: spontaneous(4). Motor Response: obeys commands(6). Verbal Response: rv oriented(5). Total: 15. ED Course: 20:13 Patient arrived in ED. ag3 20:19 Jem Gillis MD is Attending Physician. sp4 20:25 Triage completed. kd3 20:25 Arm band placed on right wrist. EKG completed in triage. Results shown to MD. taylor 20:40 XRAY Chest (1 view) In Process Unspecified. EDMS 20:45 Irving Trinidad, RN is Primary Nurse. rv 20:50 Inserted saline lock: 20 gauge in right antecubital area, using aseptic technique. rv Blood collected. 21:03 Basic Metabolic Panel Sent. rv 21:03 CBC with Diff Sent. rv 21:03 D-Dimer Sent. rv 21:03 LFT's Sent. rv 21:03 NT PRO-BNP Sent. rv 21:03 PT-INR Sent. rv 21:03 Troponin HS Sent. rv 21:03 Test, Serum Sent. rv 21:05 Patient has correct armband on for positive identification. Placed in gown. Bed in low rv position. Call light in reach. Client placed on continuous cardiac and pulse oximetry monitoring. NIBP monitoring applied. manager monitoring on. 21:06 Patient maintains SpO2 saturation greater than 95% on room air. rv 23:15 No provider procedures requiring assistance completed. IV discontinued, intact, rv bleeding controlled, No redness/swelling at site. Pressure dressing applied. Administered Medications: 20:55 Drug: NS 0.9% IV 1000 ml Route: IV; Rate: 1 bolus; Site: right antecubital; rv 23:19 Follow up: IV Status: Completed infusion; IV Intake: 1000ml rv 23:06 Drug: Potassium Chloride PO 40 mEq Route: PO; rv 23:20 Follow up: Response: No adverse reaction rv 23:20 Not Given (NOT APPROPRIATE AT THIS TIME): Propranolol PO 40 mg PO once rv Medication: 21:06 VIS not applicable for this client. rv Intake: 23:19 IV: 1000ml; Total: 1000ml. rv Outcome: 23:15 Discharged to home ambulatory, with friend. rv 23:15 Condition: good 23:21 Discharge ordered by . sp4 23:24 Discharge instructions given to patient, Instructed on discharge instructions, follow rv up and referral plans. Demonstrated understanding of instructions, follow-up care. 23:25 Patient left the ED. rv Signatures: Dispatcher [employer] EDMS Irving Trinidad, RN RN rv Afua De Leon Kyli, RN RN kd3 Jem Gillis MD MD sp4
--- NOTE | 2022-10-26 23:22 | EDPHYS ---
Physician Documentation [facility] Name: Mary Johnson Age: 37 yrs Sex: Female : 1985 Arrival Date: 10/26/2022 Time: 20:12 Bed 7 Private MD: ED Physician eJm Gillis HPI: 10/26 20:19 This 37 yrs old Female presents to ER via Unassigned with complaints of Chest sp4 Pain, Jaw Pain, Shortness Of Breath, Irregular Pulse. 20:33 Very pleasant 37-year-old female presents with complaint of acute onset of chest sp4 discomfort, palpitations, rapid heart rate, and shortness of breath. Patient states that symptoms acutely started at 6:45 PM, patient has history of hypothyroidism she is on Synthroid 50 mcg daily, history of depression on Zoloft history of hypertension on chlorthalidone 25 mg daily. History of vitamin D deficiency and irregular menstrual periods. Last menstrual period 10/07/2022. . [employer]: 20:25 LMP 10/07/2022 kd3 Historical: - Allergies: 20:25 Bactrim; kd3 20:25 CEPHALOSPORINS; kd3 20:25 HYDROCODONE; kd3 20:25 Lorabid; kd3 - Home Meds: 20:27 Thalitone oral [Active]; levothyroxine 13 mcg oral capsule [Active]; kd3 - PMHx: 20:25 Hypothyroidism; kd3 - Immunization history:: Adult Immunizations up to date. - Social history:: Smoking status: Patient denies any tobacco usage or history of. - Family history:: not pertinent. ROS: 20:33 Constitutional: Negative for fever, chills, and weight loss, Eyes: Negative for injury, sp4 pain, redness, and discharge, ENT: Negative for injury, pain, and discharge, Neck: Negative for injury, pain, and swelling, Cardiovascular: Negative for and edema, positive for shortness of breath, chest discomfort, palpitations, racing heart. Respiratory: Negative for cough, wheezing, and pleuritic chest pain, Abdomen/GI: Negative for abdominal pain, nausea, vomiting, diarrhea, and constipation, Back: Negative for injury and pain, : Negative for injury, bleeding, discharge, and swelling, MS/Extremity: Negative for injury and deformity, Skin: Negative for injury, rash, and discoloration, Neuro: Negative for headache, weakness, numbness, tingling, and seizure, Psych: Negative for depression, anxiety, Allergy/Immunology: Negative for hives, rash, and allergies Endocrine: Negative for neck swelling, polydipsia, polyuria, polyphagia, and weight changes Hematologic/Lymphatic: Negative for swollen nodes, abnormal bleeding, and unusual bruising Exam: 20:33 Constitutional: This is a well developed, well nourished patient who is awake, alert, sp4 appears anxious Head/Face: Normocephalic, atraumatic. Eyes: Pupils equal round and reactive to light, extra-ocular motions intact. Lids and lashes normal. Conjunctiva and sclera are not injected. Cornea within normal limits. Periorbital areas with no swelling, redness, or edema. ENT: Nares patent. No nasal discharge, no septal abnormalities noted. Tympanic membranes are normal and external auditory canals are clear. Oropharynx with no redness, swelling, or masses, exudates, or evidence of obstruction, uvula midline. Mucous membranes moist. Neck: Trachea midline, no thyromegaly or masses palpated, and no cervical lymphadenopathy. Supple, full range of motion without nuchal rigidity, or vertebral point tenderness. Chest/axilla: Normal chest wall appearance and motion. Nontender with no deformity. No lesions are appreciated. Cardiovascular: Regular rhythm with a normal S1 and S2. No gallops, murmurs, or rubs. Normal PMI, no JVD. No pulse deficits. Patient is tachycardic at the rate of 108 Respiratory: Lungs have equal breath sounds bilaterally, clear to auscultation and percussion. No rales, rhonchi or wheezes noted. No increased work of breathing, no retractions or nasal flaring. Abdomen/GI: Soft, non-tender, with normal bowel sounds. No distension or tympany. No guarding or rebound. No evidence of tenderness throughout. Back: No spinal tenderness. No costovertebral tenderness. Skin: Warm, dry with normal turgor. Normal color with no rashes, no lesions, and no evidence of cellulitis. MS/ Extremity: Pulses equal, no cyanosis. Neurovascular intact. Full, normal range of motion. Neuro: Awake and alert, GCS 15, oriented to person, place, time, and situation. Cranial nerves II-XII grossly intact. Motor strength 5/5 in all extremities. Sensory grossly intact. Psych: Awake, alert, with orientation to person, place and time. Positive for anxiety. 20:33 ECG was reviewed by the Attending Physician. Sinus rhythm with a rate of 100, prolonged sp4 QT, normal EKG overall, EKG time 2028. Vital Signs: 20:23 Pulse 108; Resp 20; Pulse Ox 96% on R/A; kd3 20:29 Pulse 101; Resp 18; Pulse Ox 99% on R/A; kd3 20:30 Weight 106.59 kg; Height 5 ft. 7 in. ; kd3 20:31 BP 121 / 96; kd3 21:00 BP 143 / 96; Pulse 95; Resp 16; Pulse Ox 99% on R/A; rv 22:00 BP 142 / 99; Pulse 91; Resp 18; Pulse Ox 99% on R/A; rv 23:14 BP 141 / 92; Pulse 85; Resp 16; Temp 98; Pulse Ox 98% on R/A; rv 20:30 Body Mass Index 36.81 (106.59 kg, 170.18 cm) kd3 Geronimo Coma Score: 23:14 Eye Response: spontaneous(4). Motor Response: obeys commands(6). Verbal Response: rv oriented(5). Total: 15. MDM: 20:22 Patient medically screened. sp4 23:18 HEART Score: History: Slightly Suspicious (0), ECG: Normal (0), Age: < or = 45 years sp4 (0), Risk Factors: No Risk Factors Known (0), Troponin: < or = 1 x Normal Limit (0), Total Score = 0. Data reviewed: vital signs, nurses notes, lab test result(s), EKG, radiologic studies, plain films. Consideration of Admission/Observation Escalation of care including admission/observation considered. ED course: Patient reports improvement in symptoms, work-up negative thus far, based on age group and risk factors and negative work-up in ER patient is safe for discharge home will advise follow-up with harness maker in [place] for outpatient stress test. . 23:18 ED course: Hypokalemia will replace in ER p.o., will advise bananas green leafy 4 vegetables at home for potassium replacement. . 10/26 20:29 Order name: T4 Free; Complete Time: 23:11 sp4 10/26 20:30 Order name: Basic Metabolic Panel; Complete Time: 23:11 sp4 10/26 20:30 Order name: CBC with Diff; Complete Time: 21:52 sp4 10/26 20:30 Order name: D-Dimer; Complete Time: 21:52 sp4 10/26 20:30 Order name: LFT's; Complete Time: 23:11 sp4 10/26 20:30 Order name: NT PRO-BNP; Complete Time: 23:11 sp4 10/26 20:30 Order name: PT-INR; Complete Time: 21:52 sp4 10/26 20:30 Order name: Troponin HS; Complete Time: 23:11 sp4 10/26 20:30 Order name: Test, Serum; Complete Time: 21:52 sp4 10/26 20:30 Order name: XRAY Chest (1 view); Complete Time: 21:52 sp4 10/26 20:30 Order name: EKG; Complete Time: 20:31 sp4 10/26 20:30 Order name: Cardiac monitoring; Complete Time: 20:45 sp4 10/26 20:30 Order name: EKG - Nurse/Tech; Complete Time: 20:31 sp4 10/26 20:30 Order name: IV Saline Lock; Complete Time: 20:45 sp4 10/26 20:30 Order name: Labs collected and sent; Complete Time: 20:45 sp4 10/26 20:30 Order name: O2 Per Protocol; Complete Time: 20:45 sp4 10/26 20:30 Order name: O2 Sat Monitoring; Complete Time: 20:45 4 Administered Medications: 20:55 Drug: NS 0.9% IV 1000 ml Route: IV; Rate: 1 bolus; Site: right antecubital; rv 23:19 Follow up: IV Status: Completed infusion; IV Intake: 1000ml rv 23:06 Drug: Potassium Chloride PO 40 mEq Route: PO; rv 23:20 Follow up: Response: No adverse reaction rv 23:20 Not Given (NOT APPROPRIATE AT THIS TIME): Propranolol PO 40 mg PO once rv Disposition Summary: 10/26/22 23:21 Discharge Ordered Location: Home sp4 Problem: new sp4 Symptoms: have improved sp4 Condition: Stable sp4 Diagnosis - Chest pain, unspecified sp4 - Non cardiac chest pain sp4 Followup: sp4 - With: Private Physician - When: 5 - 6 days - Reason: Recheck today's complaints Discharge Instructions: - Discharge Summary Sheet sp4 - Nonspecific Chest Pain, Adult sp4 Signatures: Dispatcher [employer] Irving Simpson, RN RN rv Yumiko Harvey RN RN kd3 Jem Gillis MD MD sp4
[2022-10-27 00:30] VITALS: BP 141/92; TEMP 98; O2SAT 98
--- NOTE | 2022-10-27 17:41 | EKG ---
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
== END 2022-10-26 23:25 | disposition home or self-care (01) ==
LOC: ER 20:12
DX: R07.89 Other chest pain (principal); E87.6 Hypokalemia; E03.9 Hypothyroidism, unspecified; Z88.1 Allergy status to other antibiotic agents; Z88.3 Allergy status to other anti-infective agents; Z88.5 Allergy status to narcotic agent; Z88.8 Allergy status to other drugs, medicaments and biological substances
CPT/HCPCS: 85025; 80048; 36415; 84703; 85610; 85379; 80076; 84484; 84439; 83880; 71045; J7030; 93005